=== PATIENT | female | born 1950 | race American Indian/Alaskan Native ===

== ENCOUNTER 2018-09-15 03:12 | Inpatient (IN) | payer MEDICARE ==
[2018-09-15] MEDS ORDERED: TYLENOL PR ONE (03:19)
[2018-09-15] MEDS ORDERED: NACL 0.9% 1000 ML 1,000 ML ONE (03:27)
[2018-09-15] MEDS ORDERED: CORDARONE 150 MG in D5W 97 ML IV ONE (03:45)
[2018-09-15 03:59] LABS: Hematocrit 41.8 % (30.3-42.9); Hemoglobin 13.6 gm/dl (10.1-14.3); Mean Corpuscular HGB Conc 33 % (30-34); Mean Corpuscular Volume 91 fl (79-97); Red Blood Count 4.61 M/mm3 (3.65-5.03); Red Cell Distribution Width 16.5 % (13.2-15.2)
[2018-09-15 04:03] LABS: Bacteria,Urine 1+ /HPF (Negative); Bilirubin,Urine NEG (Negative); Blood,Urine MOD (Negative); Mucus,Urine FEW /HPF; Urobilinogen,Urine < 2.0 mg/dL (<2.0)
--- NOTE | 2018-09-15 04:04 | XRay Report ---
CHEST 1 VIEW INDICATION: dyspnea. COMPARISON: None. FINDINGS: Support devices: None. Heart: Normal. Lungs/Pleura: Mild increased interstitial opacities may be due at least in part to low lung volumes. No consolidation, significant effusion, or pneumothorax. IMPRESSION: 1. Low lung volumes. No acute findings. Signer Name: Jose Quigley MD Signed: 09/15/2018 4:00 AM Workstation Name: [id number]
[2018-09-15 04:08] LABS: INR 1.85 (0.87-1.13)
[2018-09-15 04:09] LABS: Partial Thromboplastin Time 27.8 Sec. (24.2-36.6)
[2018-09-15 04:22] LABS: Alanine Aminotransferase 24 units/L (7-56); Albumin 2.9 g/dL (3.9-5); BUN/Creatinine Ratio 23; Blood Urea Nitrogen 37 mg/dL (7-17); Calcium 11.1 mg/dL (8.4-10.2); Hemolysis Index 4
[2018-09-15 04:24] LABS: Color,Urine Yellow (Yellow); WBC,Urine > 182.0 /HPF (0.0-6.0)
[2018-09-15 04:24] LABS: Platelet Count 82 K/mm3 (140-440)
[2018-09-15] MEDS ORDERED: NACL 0.9% 1000 ML 1,000 ML IV ONE ×3 (04:43→05:43)
[2018-09-15] MEDS ORDERED: MAXIPIME/NS 2 GM/100 ML 2 GM/100 ML BAG IV ONE (04:44)
--- NOTE | 2018-09-15 04:47 | Emergency Department Report ---
ED General Adult HPI - General Chief complaint: Fever Stated complaint: RESPIRATORY DISTRESS/SEPSIS Time Seen by Provider: 09/15/18 03:14 Source: EMS Mode of arrival: Stretcher Limitations: Altered Mental Status - History of Present Illness Initial comments: Patient is a 67-year-old [place] female who is [facility] with fever and altered mental status. Patient was found to be rapidly breathing and poorly responsive. Patient is a DO NOT RESUSCITATE. Patient has a history of diabetes hypertension and has had DVTs in the past patient is unable to give any additional history. Severity scale (0 -10): 0 - Related Data Allergies Allergy/AdvReac Type Severity Reaction Status Date / Time gabapentin Allergy Unknown Verified 09/15/18 03:23 Sulfa (Sulfonamide Allergy Unknown Verified 09/15/18 03:23 Antibiotics) ED Review of Systems ROS: Stated complaint: RESPIRATORY DISTRESS/SEPSIS Other details as noted in HPI Comment: Unobtainable due to pts medical conditions ED Past Medical Hx - Past Medical History Hx Hypertension: Yes Hx Diabetes: Yes Additional medical history: UTI, muscle weakness, abd pain, Acute embolism/thrombis of deep veins, obesity, dysphagia, - Social History Smoking Status: Unknown if ever smoked Substance Use Type: None ED Physical Exam - General Limitations: Altered Mental Status General appearance: lethargic, in distress - Head Head exam: Present: atraumatic, normocephalic - Eye Eye exam: Present: normal appearance, PERRL, EOMI - ENT ENT exam: Present: mucous membranes moist - Neck Neck exam: Present: normal inspection - Respiratory Respiratory exam: Present: normal lung sounds bilaterally. Absent: respiratory distress, wheezes, rales, rhonchi - Cardiovascular Cardiovascular Exam: Present: tachycardia. Absent: systolic murmur, diastolic m urmur, rubs, gallop - GI/Abdominal GI/Abdominal exam: Present: soft, normal bowel sounds. Absent: distended, guarding, rebound, rigid - Extremities Exam Extremities exam: Present: normal inspection - Back Exam Back exam: Present: normal inspection - Neurological Exam Neurological exam: Present: alert, altered - Skin Skin exam: Present: warm, dry, intact, normal color. Absent: rash ED Course Vital Signs 09/15/18 03:15 Temperature 104.3 F H Pulse Rate 161 H Respiratory 24 Rate Blood Pressure 129/78 O2 Sat by Pulse 96 Oximetry ED Medical Decision Making - Lab Data Result diagrams: 09/15/18 03:43 09/15/18 03:43 Lab Results 09/15/18 09/15/18 09/15/18 Range/Units 03:39 03:43 03:43 WBC 7.6 (4.5-11.0) K/mm3 RBC 4.61 (3.65-5.03) M/mm3 Hgb 13.6 (10.1-14.3) gm/dl Hct 41.8 (30.3-42.9) % MCV 91 (79-97) fl MCH 30 (28-32) pg MCHC 33 (30-34) % RDW 16.5 H (13.2-15.2) % Plt Count 82 L (140-440) K/mm3 Seg Neutrophils % Doctor Of Radiology PT (12.2-14.9) Sec. INR (0.87-1.13) APTT (24.2-36.6) Sec. Sodium 137 (137-145) mmol/L Potassium 3.6 (3.6-5.0) mmol/L Chloride 99.9 (98-107) mmol/L Carbon Dioxide 19 L (22-30) mmol/L Anion Gap 22 mmol/L BUN 37 H (7-17) mg/dL Creatinine 1.6 H (0.7-1.2) mg/dL Estimated GFR 39 ml/min BUN/Creatinine Ratio 23 % Glucose 362 H (65-100) mg/dL Lactic Acid (0.7-2.0) mmol/L Calcium 11.1 H (8.4-10.2) mg/dL Total Bilirubin 1.00 (0.1-1.2) mg/dL AST 25 (5-40) units/L ALT 24 (7-56) units/L Alkaline Phosphatase 176 H (35-129) units/L Troponin T < 0.010 (0.00-0.029) ng/mL Total Protein 7.6 (6.3-8.2) g/dL Albumin 2.9 L (3.9-5) g/dL Albumin/Globulin Ratio 0.6 % Urine Color Yellow (Yellow) Urine Turbidity Cloudy (Clear) Urine pH 6.0 (5.0-7.0) Ur Specific [place] 1.014 (1.003-1.030) Urine Protein 100 mg/dl (Negative) mg/dL Urine Glucose (UA) >=500 (Negative) mg/dL Urine Ketones Tr (Negative) mg/dL Urine Blood Mod (Negative) Urine Nitrite Neg (Negative) Urine Bilirubin Neg (Negative) Urine Urobilinogen < 2.0 (<2.0) mg/dL Ur Leukocyte Esterase Lg (Negative) Urine WBC (Auto) > 182.0 H (0.0-6.0) /HPF Urine RBC (Auto) 5.0 (0.0-6.0) /HPF Urine Bacteria (Auto) 1+ (Negative) /HPF Urine Mucus Few /HPF Urine Yeast (Budding) Few /HPF 09/15/18 09/15/18 Range/Units 03:43 03:43 WBC (4.5-11.0) K/mm3 RBC (3.65-5.03) M/mm3 Hgb (10.1-14.3) gm/dl Hct (30.3-42.9) % MCV (79-97) fl MCH (28-32) pg MCHC (30-34) % RDW (13.2-15.2) % Plt Count (140-440) K/mm3 Seg Neutrophils % PT 20.9 H (12.2-14.9) Sec. INR 1.85 H (0.87-1.13) APTT 27.8 (24.2-36.6) Sec. Sodium (137-145) mmol/L Potassium (3.6-5.0) mmol/L Chloride (98-107) mmol/L Carbon Dioxide (22-30) mmol/L Anion Gap mmol/L BUN (7-17) mg/dL Creatinine (0.7-1.2) mg/dL Estimated GFR ml/min BUN/Creatinine Ratio % Glucose (65-100) mg/dL Lactic Acid 2.60 H* (0.7-2.0) mmol/L Calcium (8.4-10.2) mg/dL Total Bilirubin (0.1-1.2) mg/dL AST (5-40) units/L ALT (7-56) units/L Alkaline Phosphatase (35-129) units/L Troponin T (0.00-0.029) ng/mL Total Protein (6.3-8.2) g/dL Albumin (3.9-5) g/dL Albumin/Globulin Ratio % Urine Color (Yellow) Urine Turbidity (Clear) Urine pH (5.0-7.0) Ur Specific [place] (1.003-1.030) Urine Protein (Negative) mg/dL Urine Glucose (UA) (Negative) mg/dL Urine Ketones (Negative) mg/dL Urine Blood (Negative) Urine Nitrite (Negative) Urine Bilirubin (Negative) Urine Urobilinogen (<2.0) mg/dL Ur Leukocyte Esterase (Negative) Urine WBC (Auto) (0.0-6.0) /HPF Urine RBC (Auto) (0.0-6.0) /HPF Urine Bacteria (Auto) (Negative) /HPF Urine Mucus /HPF Urine Yeast (Budding) /HPF - EKG Data -: EKG Interpreted by Al - EKG Data 09/15/18 04:52 EKG shows a wide complex regular ventricular tachycardia. Patient with a right bundle-branch block and left anterior fascicular block as well. [place] is leftward interval show a prolonged QT and widening QRS. Time of interpretation is 3:15 - Radiology Data Radiology results: report reviewed (chest x-ray shows low lung volumes but otherwise no acute process) - Medical Decision Making Patient is 67-year-old black female was coming from jail with fever and altered mental status. Patient has a stable V. tach as her blood pressures within normal limits. Patient's given rectal Tylenol for fever. Laboratory investigation shows a patient does have a significant urinary tract infection. Patient started on cefepime. Patient's heart rate did slow briefly with adenosine however it went back up to 160. Patient given 150 mg of amiodarone over 10 minutes. This decreased the heart rate to 1:30. Blood pressure did drop just slightly after this bolus. IV fluids have been initiated. Patient to be admitted to the hospitalist service. Again patient is a DO NOT RESUSCITATE. Critical Care Time: Yes (45) Critical care attestation.: If time is entered above; I have spent that time in minutes in the direct care of this critically ill patient, excluding procedure time. ED Disposition Clinical Impression: Wide-complex tachycardia Sepsis Qualifiers: Sepsis type: sepsis due to unspecified organism Qualified Code(s): A41.9 - Sepsis, unspecified organism Urinary tract infection Qualifiers: Urinary tract infection type: acute cystitis Hematuria presence: without hematuria Qualified Code(s): N30.00 - Acute cystitis without hematuria Disposition: DC-09 OP ADMIT IP TO THIS HOSP Is pt being admited?: Yes Does the pt Need Aspirin: No Condition: Stable Time of Disposition: 04:56
[2018-09-15] MEDS ORDERED: CORDARONE 900 MG in D5W 482 ML IV SCH (05:00)
[2018-09-15] MEDS ORDERED: SODIUM CHLORIDE FLUSH SYRINGE 10 ML IV PRN (05:41)
--- NOTE | 2018-09-15 05:51 | History and Physical Report ---
History of Present Illness Date of examination: 09/15/18 History of present illness: 67 -year-old with a history of hypertension, diabetes, DVT, dysphagia who is a DO NOT RESUSCITATE, do not hospitalize per paper work from [place], is being evaluated for fever, decreased responsiveness. In the emergency room she was in the V. tach with a rate of 160s, she was given adenosine twice without any effect, given amiodarone bolus which brought her rate down to 120s, however her blood pressure dropped. Her lab is significant for urinary tract infections, given IV antibiotics, fluids. Review of systems unobtainable PAST MEDICAL HISTORY:hypertension, diabetes, DVT, dysphagia PAST SURGICAL HISTORY: Unknown SOCIAL HISTORY: Unknown FAMILY HISTORY: Unknown Medications and Allergies Allergies Allergy/AdvReac Type Severity Reaction Status Date / Time gabapentin Allergy Unknown Verified 09/15/18 03:23 Sulfa (Sulfonamide Allergy Unknown Verified 09/15/18 03:23 Antibiotics) Home Medications Medication Instructions Recorded Confirmed Last Taken Type Amlodipine Besylate [Norvasc] 10 mg PO DAILY 09/15/18 09/15/18 09/14/18 History Atorvastatin Calcium [Lipitor] 20 mg PO QDAY 09/15/18 09/15/18 09/14/18 History Cholecalciferol Vit D3 [Vitamin D3 1,000 unit PO DAILY 09/15/18 09/15/18 09/14/18 History 1,000 UNIT TAB] HYDROcodone/APAP 5-325 [[place] 1 each PO Q4HR PRN 09/15/18 09/15/18 09/14/18 History 5/325] Hydralazine HCl 50 mg PO PRN 09/15/18 09/15/18 09/14/18 History Lactulose [Cephulac] 20 gm PO DAILY 09/15/18 09/15/18 09/14/18 History Linagliptin [Tradjenta] 5 mg PO QDAY 09/15/18 09/15/18 09/14/18 History Magnesium Hydroxide [Milk of 400 mg PO DAILY 09/15/18 09/15/18 09/14/18 History Magnesia] Pantoprazole Sodium [Protonix] 20 mg PO DAILY 09/15/18 09/15/18 09/14/18 History Rivaroxaban [Xarelto] 20 mg PO QDAY 09/15/18 09/15/18 09/14/18 History cloNIDine [Catapres] 0.2 mg PO PRN 09/15/18 09/15/18 09/14/18 History Active Meds: Active Medications Acetaminophen (Tylenol) 650 mg PO Q4H PRN PRN Reason: Pain MILD(1-3)/Fever >100.5/[place]AL[place] Enoxaparin Sodium (Lovenox) 30 mg SUB-Q QDAY REJI Amiodarone HCl 900 mg/ (Dextrose) 500 mls @ 33.333 mls/hr IV DIRECT REJI; Protocol Last Admin: 09/15/18 05:14 Dose: 1 mg/min, 33.333 mls/hr Documented by: Norepinephrine (Levophed Drip 4 Mg/Ns 250 Ml) 4 mg in 250 mls @ 7.5 mls/hr IV TITR REJI; Protocol Sodium Chloride (Nacl 0.9% 1000 Ml) 1,000 mls @ 999 mls/hr IV BOLUS ONE Stop: 09/15/18 06:11 Last Admin: 09/15/18 05:14 Dose: 999 mls/hr Documented by: Sodium Chloride (Nacl 0.9% 1000 Ml) 1,000 mls @ 125 mls/hr IV DIRECT REJI Sodium Chloride (Nacl 0.9% 1000 Ml) 1,000 mls @ 999 mls/hr IV ONCE ONE Stop: 09/15/18 06:43 Last Admin: 09/15/18 05:44 Dose: 999 mls/hr Documented by: Ondansetron HCl (Zofran) 4 mg IV Q8H PRN PRN Reason: Nausea And Vomiting Sodium Chloride (Sodium Chloride Flush Syringe 10 Ml) 10 ml IV BID REJI Sodium Chloride (Sodium Chloride Flush Syringe 10 Ml) 10 ml IV PRN PRN PRN Reason: LINE FLUSH Exam - Physical Exam Narrative exam: General Apperance: The patient lying in bed, breathing comfortable HEENT: Normocephalic, atraumatic. Pupils equally round and reactive to light, EOMI, no sclericterus or JVD or thyromegaly or nodule. , no carotid bruit, mucous membranes moist, no exudate or erythema Heart: S1-S2, regular is rhythm Lungs: Clear to auscultation bilaterally, breathing comfortable Abdomen: Positive bowel sounds, soft, nontender, nondistended, no organomegaly Extremities: No edema cyanosis clubbing Skin: no rash, nodule, warm and dry Neuro: Difficult to assess - Constitutional Vitals: Temp Pulse Resp BP Pulse Ox 101.4 F H 127 H 23 103/61 95 09/15/18 05:43 09/15/18 05:30 09/15/18 05:30 09/15/18 05:30 09/15/18 05:30 Results - Labs CBC & Chem 7: 09/16/18 04:17 09/16/18 04:17 Labs: Abnormal lab results 09/15/18 09/15/18 09/15/18 Range/Units 03:39 03:43 03:43 RDW 16.5 H (13.2-15.2) % Plt Count 82 L (140-440) K/mm3 PT (12.2-14.9) Sec. INR (0.87-1.13) Carbon Dioxide 19 L (22-30) mmol/L BUN 37 H (7-17) mg/dL Creatinine 1.6 H (0.7-1.2) mg/dL Glucose 362 H (65-100) mg/dL Lactic Acid (0.7-2.0) mmol/L Calcium 11.1 H (8.4-10.2) mg/dL Alkaline Phosphatase 176 H (35-129) units/L Albumin 2.9 L (3.9-5) g/dL Urine WBC (Auto) > 182.0 H (0.0-6.0) /HPF 09/15/18 09/15/18 Range/Units 03:43 03:43 RDW (13.2-15.2) % Plt Count (140-440) K/mm3 PT 20.9 H (12.2-14.9) Sec. INR 1.85 H (0.87-1.13) Carbon Dioxide (22-30) mmol/L BUN (7-17) mg/dL Creatinine (0.7-1.2) mg/dL Glucose (65-100) mg/dL Lactic Acid 2.60 H* (0.7-2.0) mmol/L Calcium (8.4-10.2) mg/dL Alkaline Phosphatase (35-129) units/L Albumin (3.9-5) g/dL Urine WBC (Auto) (0.0-6.0) /HPF - Imaging and Cardiology EKG: image reviewed Chest x-ray: report reviewed Assessment and Plan Assessment V. tach with RVR Sepsis Urinary tract infection Hypotension secondary to drugs Diabetes h/o DVT Plan Continue amiodarone drip Continue IV fluids, amio drip, start IV antibiotic, follow cultures Cardiac enzymes, echo, consult cardiology, critical care DVT prophylaxis with xarelto, hold antihypertensives Spoke with the niece, not aware of the patient was a DO NOT RESUSCITATE, do not hospitalize DO NOT RESUSCITATE papers sign June of this year She'll come in and clarify CODE STATUS
[2018-09-15] MEDS: LEVOPHED DRIP 4 MG/NS 250 ML 4 MG/250 ML BAG IV SCH (06:19)
[2018-09-15 06:33] LABS: Creatine Kinase MB 1.3 ng/mL (0.0-4.0)
[2018-09-15 08:21] LABS: Anisocytosis Few; Band Neutrophils # (Manual) 1.1 K/mm3; Basophils % (Manual) 0 % (0.0-1.8); Eosinophils % (Manual) 0 % (0.0-4.3); Giant Platelets Rare; Macrocytosis Few; Total Cells Counted 100
[2018-09-15 08:22] LABS: Platelet Estimate Consistent w Auto
[2018-09-15] MEDS: NACL 0.9% 1000 ML 1,000 ML IV SCH ×2 (08:29→17:58)
[2018-09-15] MEDS ORDERED: PANTOPRAZOLE SODIUM 20 MG PO SCH (10:00)
[2018-09-15] MEDS: VITAMIN D3 PO SCH (10:00)
[2018-09-15] MEDS ORDERED: LOVENOX SUB-Q SCH ×2 (10:00)
[2018-09-15] MEDS ORDERED: ATORVASTATIN CALCIUM 20 MG PO SCH (10:00)
[2018-09-15] MEDS: PROTONIX PO SCH (10:00)
[2018-09-15] MEDS ORDERED: XARELTO PO SCH (10:00)
--- NOTE | 2018-09-15 10:09 | Progress Note ---
Assessment and Plan Assessment and plan: Admit this morning Patient is a 67 yo woman from [facility] with a history of (per chart) UTI, DVT, DM type 2 and hypertension (patient is unable to give any additional history) who presented to [facility] ED with ANNA, fevers and AMS. Paperwork from [facility] says DNR and do not hospitalize under advance directives but no official paperwork sent with patient. In the emergency room she was found to be in V. tach with a rate of 160s, she was given adenosine twice without any effect, given amiodarone IV which decreased HR to 120s Sepsis UTI Acute encephalopathy Vtach/ Wide complex tachycardia: Continue amiodarone drip, consult Cardiology Hypotension secondary to drugs Diabetes mellitus type 2 h/o DVT on Xarelto Plan Continue IV fluids, amio drip, start IV antibiotic, follow cultures Cardiac enzymes, echo, consult cardiology, critical care DVT prophylaxis with xarelto, hold antihypertensives Dr. Sayra Moore Spoke with patient's niece, not aware of the patient was a DO NOT RESUSCITATE, do not hospitalize, DO NOT RESUSCITATE papers sign June of this year She'll come in and clarify CODE STATUS Code Status needs to be clarified This if patient first visit in our EMR prolonged inpatient services 34 minutes History Interval history: Patient was seen and examined. Follow-up on current diagnosis AMS and fevers. No overnight events reported to me. Imaging, nursing note, chart, labs and old chart reviewed. Gen: WDWN, NAD, Awake, Alert, Orientated HEENT: NCAT, EOMI, PERRL, OP Clear Neck: supple, no adenopathy, no thyromegaly, no JVD CVS/Heart: RRR, normal S1S2, pulses present bilaterally Chest/Lungs: CTA B, Symmetrical chest expansion, good air entry bilaterally GI/Abdomen: soft, NTND, good bowel sounds, no guarding or rebound /Bladder: no suprapubic tenderness, no CVA or paraspinal tenderness Extermity/Skin: no c/c/e, no obvious rash MSK: FROM x 4 Neuro: CN 2-12 grossly intact, no new focal deficits Psych: calm Hospitalist Physical - Constitutional Vitals: Temp Pulse Resp BP Pulse Ox 101.4 F H 101 H 14 105/66 99 09/15/18 05:43 09/15/18 09:30 09/15/18 09:30 09/15/18 09:30 09/15/18 09:30 Results - Labs CBC & Chem 7: 09/15/18 03:43 09/15/18 03:43 Labs: Laboratory Last Values WBC 7.6 K/mm3 (4.5-11.0) 09/15/18 03:43 RBC 4.61 M/mm3 (3.65-5.03) 09/15/18 03:43 Hgb 13.6 gm/dl (10.1-14.3) 09/15/18 03:43 Hct 41.8 % (30.3-42.9) 09/15/18 03:43 MCV 91 fl (79-97) 09/15/18 03:43 MCH 30 pg (28-32) 09/15/18 03:43 MCHC 33 % (30-34) 09/15/18 03:43 RDW 16.5 % (13.2-15.2) H 09/15/18 03:43 Plt Count 82 K/mm3 (140-440) L 09/15/18 03:43 Add Manual Diff Complete 09/15/18 03:43 Total Counted 100 09/15/18 03:43 Seg Neutrophils % Assistant To The Dean 09/15/18 03:43 Seg Neuts % (Manual) 83.0 % (40.0-70.0) H 09/15/18 03:43 15.0 % 09/15/18 03:43 1.0 % (13.4-35.0) L 09/15/18 03:43 Reactive Lymphs % (Man) 0 % 09/15/18 03:43 1.0 % (0.0-7.3) 09/15/18 03:43 0 % (0.0-4.3) 09/15/18 03:43 0 % (0.0-1.8) 09/15/18 03:43 0 % 09/15/18 03:43 0 % 09/15/18 03:43 0 % 09/15/18 03:43 0 % 09/15/18 03:43 Nucleated RBC % Not Reportable 09/15/18 03:43 Seg Neutrophils # Man 6.3 K/mm3 (1.8-7.7) 09/15/18 03:43 Band Neutrophils # 1.1 K/mm3 09/15/18 03:43 0.1 K/mm3 (1.2-5.4) L 09/15/18 03:43 Abs React Lymphs (Man) 0.0 K/mm3 09/15/18 03:43 0.1 K/mm3 (0.0-0.8) 09/15/18 03:43 0.0 K/mm3 (0.0-0.4) 09/15/18 03:43 0.0 K/mm3 (0.0-0.1) 09/15/18 03:43 0.0 K/mm3 09/15/18 03:43 0.0 K/mm3 09/15/18 03:43 0.0 K/mm3 09/15/18 03:43 Blast Cells # 0.0 K/mm3 09/15/18 03:43 WBC Morphology Not Reportable 09/15/18 03:43 Hypersegmented Neuts Not Reportable 09/15/18 03:43 Hyposegmented Neuts Not Reportable 09/15/18 03:43 Hypogranular Neuts Not Reportable 09/15/18 03:43 Not Reportable 09/15/18 03:43 Not Reportable 09/15/18 03:43 Not Reportable 09/15/18 03:43 Not Reportable 09/15/18 03:43 Not Reportable 09/15/18 03:43 Not Reportable 09/15/18 03:43 Consistent w auto 09/15/18 03:43 Not Reportable 09/15/18 03:43 Plt Clumps, EDTA Not Reportable 09/15/18 03:43 Not Reportable 09/15/18 03:43 Rare 09/15/18 03:43 Not Reportable 09/15/18 03:43 Plt Morphology Comment Not Reportable 09/15/18 03:43 RBC Morphology Not Reportable 09/15/18 03:43 Dimorphic RBCs Not Reportable 09/15/18 03:43 Not Reportable 09/15/18 03:43 Not Reportable 09/15/18 03:43 Not Reportable 09/15/18 03:43 Few 09/15/18 03:43 Not Reportable 09/15/18 03:43 Few 09/15/18 03:43 Not Reportable 09/15/18 03:43 Not Reportable 09/15/18 03:43 Not Reportable 09/15/18 03:43 Not Reportable 09/15/18 03:43 Not Reportable 09/15/18 03:43 Not Reportable 09/15/18 03:43 Not Reportable 09/15/18 03:43 Not Reportable 09/15/18 03:43 Not Reportable 09/15/18 03:43 Not Reportable 09/15/18 03:43 Not Reportable 09/15/18 03:43 Not Reportable 09/15/18 03:43 Not Reportable 09/15/18 03:43 Acanthocytes (Spur) Not Reportable 09/15/18 03:43 Rouleaux Not Reportable 09/15/18 03:43 Not Reportable 09/15/18 03:43 Not Reportable 09/15/18 03:43 Not Reportable 09/15/18 03:43 Not Reportable 09/15/18 03:43 Hem Pathologist Commnt No 09/15/18 03:43 PT 20.9 Sec. (12.2-14.9) H 09/15/18 03:43 INR 1.85 (0.87-1.13) H 09/15/18 03:43 APTT 27.8 Sec. (24.2-36.6) 09/15/18 03:43 Sodium 137 mmol/L (137-145) 09/15/18 03:43 Potassium 3.6 mmol/L (3.6-5.0) 09/15/18 03:43 Chloride 99.9 mmol/L (98-107) 09/15/18 03:43 Carbon Dioxide 19 mmol/L (22-30) L 09/15/18 03:43 22 mmol/L 09/15/18 03:43 BUN 37 mg/dL (7-17) H 09/15/18 03:43 1.6 mg/dL (0.7-1.2) H 09/15/18 03:43 Estimated GFR 39 ml/min 09/15/18 03:43 23 % 09/15/18 03:43 Glucose 362 mg/dL (65-100) H 09/15/18 03:43 Lactic Acid 1.80 mmol/L (0.7-2.0) 09/15/18 07:02 Calcium 11.1 mg/dL (8.4-10.2) H 09/15/18 03:43 1.00 mg/dL (0.1-1.2) 09/15/18 03:43 AST 25 units/L (5-40) 09/15/18 03:43 ALT 24 units/L (7-56) 09/15/18 03:43 176 units/L (35-129) H 09/15/18 03:43 53 units/L (30-135) 09/15/18 06:01 CK-MB (CK-2) 1.3 ng/mL (0.0-4.0) 09/15/18 06:01 CK-MB (CK-2) Rel Index 2.4 (0-4) 09/15/18 06:01 0.010 ng/mL (0.00-0.029) 09/15/18 06:01 7.6 g/dL (6.3-8.2) 09/15/18 03:43 2.9 g/dL (3.9-5) L 09/15/18 03:43 0.6 % 09/15/18 03:43 Yellow (Yellow) 09/15/18 03:39 Cloudy (Clear) 09/15/18 03:39 6.0 (5.0-7.0) 09/15/18 03:39 Ur Specific [place] 1.014 (1.003-1.030) 09/15/18 03:39 100 mg/dl mg/dL (Negative) 09/15/18 03:39 >=500 mg/dL (Negative) 09/15/18 03:39 Tr mg/dL (Negative) 09/15/18 03:39 Mod (Negative) 09/15/18 03:39 Neg (Negative) 09/15/18 03:39 Neg (Negative) 09/15/18 03:39 < 2.0 mg/dL (<2.0) 09/15/18 03:39 Ur Leukocyte Esterase Lg (Negative) 09/15/18 03:39 > 182.0 /HPF (0.0-6.0) H 09/15/18 03:39 5.0 /HPF (0.0-6.0) 09/15/18 03:39 1+ /HPF (Negative) 09/15/18 03:39 Few /HPF 09/15/18 03:39 Few /HPF 09/15/18 03:39 Active Medications - Current Medications Current Medications: Generic Name Dose Route Start Last Admin Trade Name Freq PRN Reason Stop Dose Admin Acetaminophen 650 mg 09/15/18 05:41 Tylenol PO Q4H PRN Pain MILD(1-3)/Fever >100.5/[place] Acetaminophen 650 mg 09/15/18 08:49 Tylenol [place] Q4H PRN Pain, Mild (1-3) Atorvastatin Calcium 20 mg 09/15/18 22:00 Lipitor PO QHS [facility] Cholecalciferol 1,000 unit 09/15/18 10:00 Vitamin D3 PO DAILY [facility] Amiodarone HCl 900 mg/ 500 mls @ 33.333 mls/hr 09/15/18 05:00 09/15/18 05:14 Dextrose IV 1 mg/min DIRECT REJI 33.333 mls/hr Administration Protocol 1 MG/MIN Norepinephrine 4 mg in 250 mls @ 7.5 mls/hr 09/15/18 06:00 09/15/18 08:07 Levophed Drip 4 Mg/Ns 250 Ml IV 6 mcg/min TITR REJI 22.5 mls/hr Titration Protocol 2 MCG/MIN Sodium Chloride 1,000 mls @ 125 mls/hr 09/15/18 06:00 09/15/18 08:29 Nacl 0.9% 1000 Ml IV 125 mls/hr DIRECT REJI Administration Piperacillin Sod/Tazobactam Sod 3.375 gm in 50 mls @ 100 mls/hr 09/15/18 14:00 Zosyn/Ns 3.375gm/50ml IV Q8HR [facility] Ondansetron HCl 4 mg 09/15/18 05:41 Zofran IV Q8H PRN Nausea And Vomiting Pantoprazole Sodium 20 mg 09/15/18 10:00 Protonix PO QDAY [facility] Rivaroxaban 20 mg 09/15/18 10:00 Xarelto PO QPM [facility] Protocol Sodium Chloride 10 ml 09/15/18 10:00 Sodium Chloride Flush Syringe 10 Ml IV BID REJI Sodium Chloride 10 ml 09/15/18 05:41 Sodium Chloride Flush Syringe 10 Ml IV PRN PRN LINE FLUSH
--- NOTE | 2018-09-15 11:21 | Consultation ---
History of Present Illness Reason for consult: dyspnea History of present illness: patient with hx of afib from [place] who comes in with sob and AMS. Pt is in ICU on amiodarone drip Medications and Allergies Allergies Allergy/AdvReac Type Severity Reaction Status Date / Time gabapentin Allergy Unknown Verified 09/15/18 03:23 Sulfa (Sulfonamide Allergy Unknown Verified 09/15/18 03:23 Antibiotics) Home Medications Medication Instructions Recorded Confirmed Last Taken Type Amlodipine Besylate [Norvasc] 10 mg PO DAILY 09/15/18 09/15/18 09/14/18 History Atorvastatin Calcium [Lipitor] 20 mg PO QDAY 09/15/18 09/15/18 09/14/18 History Cholecalciferol Vit D3 [Vitamin D3 1,000 unit PO DAILY 09/15/18 09/15/18 09/14/18 History 1,000 UNIT TAB] HYDROcodone/APAP 5-325 [[place] 1 each PO Q4HR PRN 09/15/18 09/15/18 09/14/18 History 5/325] Hydralazine HCl 50 mg PO PRN 09/15/18 09/15/18 09/14/18 History Lactulose [Cephulac] 20 gm PO DAILY 09/15/18 09/15/18 09/14/18 History Linagliptin [Tradjenta] 5 mg PO QDAY 09/15/18 09/15/18 09/14/18 History Magnesium Hydroxide [Milk of 400 mg PO DAILY 09/15/18 09/15/18 09/14/18 History Magnesia] Pantoprazole Sodium [Protonix] 20 mg PO DAILY 09/15/18 09/15/18 09/14/18 History Rivaroxaban [Xarelto] 20 mg PO QDAY 09/15/18 09/15/18 09/14/18 History cloNIDine [Catapres] 0.2 mg PO PRN 09/15/18 09/15/18 09/14/18 History Active Meds: Active Medications Acetaminophen (Tylenol) 650 mg PO Q4H PRN PRN Reason: Pain MILD(1-3)/Fever >100.5/WHALEN Acetaminophen (Tylenol) 650 mg IN Q4H PRN PRN Reason: Pain, Mild (1-3) Atorvastatin Calcium (Lipitor) 20 mg PO QHS REJI Cholecalciferol (Vitamin D3) 1,000 unit PO DAILY REJI Amiodarone HCl 900 mg/ (Dextrose) 500 mls @ 33.333 mls/hr IV DIRECT REJI; Protocol Last Admin: 09/15/18 05:14 Dose: 1 mg/min, 33.333 mls/hr Documented by: Norepinephrine (Levophed Drip 4 Mg/Ns 250 Ml) 4 mg in 250 mls @ 7.5 mls/hr IV TITR REJI; Protocol Last Titration: 09/15/18 08:07 Dose: 6 mcg/min, 22.5 mls/hr Documented by: Sodium Chloride (Nacl 0.9% 1000 Ml) 1,000 mls @ 125 mls/hr IV DIRECT REJI Last Admin: 09/15/18 08:29 Dose: 125 mls/hr Documented by: Piperacillin Sod/Tazobactam Sod (Zosyn/Ns 3.375gm/50ml) 3.375 gm in 50 mls @ 100 mls/hr IV Q8HR REJI Ondansetron HCl (Zofran) 4 mg IV Q8H PRN PRN Reason: Nausea And Vomiting Pantoprazole Sodium (Protonix) 20 mg PO QDAY REJI Rivaroxaban (Xarelto) 20 mg PO QPM REJI; Protocol Sodium Chloride (Sodium Chloride Flush Syringe 10 Ml) 10 ml IV BID REJI Sodium Chloride (Sodium Chloride Flush Syringe 10 Ml) 10 ml IV PRN PRN PRN Reason: LINE FLUSH Physical Examination Vital signs: Vital Signs Pulse Resp Pulse Ox 161 H 20 95 09/15/18 03:10 09/15/18 03:10 09/15/18 03:10 Results - Laboratory Findings CBC and BMP: 09/15/18 03:43 09/15/18 03:43 PT/INR, D-dimer PT 20.9 Sec. (12.2-14.9) H 09/15/18 03:43 INR 1.85 (0.87-1.13) H 09/15/18 03:43 Abnormal lab findings: Abnormal Labs 09/15/18 09/15/18 09/15/18 03:39 03:43 03:43 RDW 16.5 H Plt Count 82 L Seg Neuts % (Manual) 83.0 H Lymphocytes % (Manual) 1.0 L Lymphocytes # (Manual) 0.1 L PT INR Carbon Dioxide 19 L BUN 37 H Creatinine 1.6 H Glucose 362 H Lactic Acid Calcium 11.1 H Alkaline Phosphatase 176 H Albumin 2.9 L Urine WBC (Auto) > 182.0 H 09/15/18 09/15/18 09/15/18 03:43 03:43 06:01 RDW Plt Count Seg Neuts % (Manual) Lymphocytes % (Manual) Lymphocytes # (Manual) PT 20.9 H INR 1.85 H Carbon Dioxide BUN Creatinine Glucose Lactic Acid 2.60 H* 2.30 H* Calcium Alkaline Phosphatase Albumin Urine WBC (Auto) - Diagnostic Findings Chest x-ray: report reviewed, image reviewed Assessment and Plan - Patient Problems (1) Dementia Current Visit: Yes Status: Acute (2) Physical deconditioning Current Visit: Yes Status: Acute (3) Sepsis Current Visit: Yes Status: Acute Qualifiers: Sepsis type: sepsis due to unspecified organism Qualified Code(s): A41.9 - Sepsis, unspecified organism (4) Urinary tract infection Current Visit: Yes Status: Acute Qualifiers: Urinary tract infection type: acute cystitis Hematuria presence: without hematuria Qualified Code(s): N30.00 - Acute cystitis without hematuria (5) Wide-complex tachycardia Current Visit: Yes Status: Acute
--- NOTE | 2018-09-15 11:22 | Consultation ---
History of Present Illness Consult date: 09/15/18 History of present illness: 67 year old of recurrent [place] female presenting from the alf with an altered mental status. She was found to have a wide QRS tachycardia on her 12-lead EKG for which she was treated patient is non-verbal or communicative history obtained from the chart Past History Past Medical History: diabetes, hypertension Past Surgical History: No surgical history Medications and Allergies Allergies Allergy/AdvReac Type Severity Reaction Status Date / Time gabapentin Allergy Unknown Verified 09/15/18 03:23 Sulfa (Sulfonamide Allergy Unknown Verified 09/15/18 03:23 Antibiotics) Home Medications Medication Instructions Recorded Confirmed Last Taken Type Amlodipine Besylate [Norvasc] 10 mg PO DAILY 09/15/18 09/15/18 09/14/18 History Atorvastatin Calcium [Lipitor] 20 mg PO QDAY 09/15/18 09/15/18 09/14/18 History Cholecalciferol Vit D3 [Vitamin D3 1,000 unit PO DAILY 09/15/18 09/15/18 09/14/18 History 1,000 UNIT TAB] HYDROcodone/APAP 5-325 [[place] 1 each PO Q4HR PRN 09/15/18 09/15/18 09/14/18 History 5/325] Hydralazine HCl 50 mg PO PRN 09/15/18 09/15/18 09/14/18 History Lactulose [Cephulac] 20 gm PO DAILY 09/15/18 09/15/18 09/14/18 History Linagliptin [Tradjenta] 5 mg PO QDAY 09/15/18 09/15/18 09/14/18 History Magnesium Hydroxide [Milk of 400 mg PO DAILY 09/15/18 09/15/18 09/14/18 History Magnesia] Pantoprazole Sodium [Protonix] 20 mg PO DAILY 09/15/18 09/15/18 09/14/18 History Rivaroxaban [Xarelto] 20 mg PO QDAY 09/15/18 09/15/18 09/14/18 History cloNIDine [Catapres] 0.2 mg PO PRN 09/15/18 09/15/18 09/14/18 History Active Meds: Active Medications Acetaminophen (Tylenol) 650 mg PO Q4H PRN PRN Reason: Pain MILD(1-3)/Fever >100.5/[place] Acetaminophen (Tylenol) 650 mg [place] Q4H PRN PRN Reason: Pain, Mild (1-3) Atorvastatin Calcium (Lipitor) 20 mg PO QHS REJI Cholecalciferol (Vitamin D3) 1,000 unit PO DAILY REJI Amiodarone HCl 900 mg/ (Dextrose) 500 mls @ 33.333 mls/hr IV DIRECT REJI; Protocol Last Admin: 09/15/18 05:14 Dose: 1 mg/min, 33.333 mls/hr Documented by: Norepinephrine (Levophed Drip 4 Mg/Ns 250 Ml) 4 mg in 250 mls @ 7.5 mls/hr IV TITR REJI; Protocol Last Titration: 09/15/18 08:07 Dose: 6 mcg/min, 22.5 mls/hr Documented by: Sodium Chloride (Nacl 0.9% 1000 Ml) 1,000 mls @ 125 mls/hr IV DIRECT REJI Last Admin: 09/15/18 08:29 Dose: 125 mls/hr Documented by: Piperacillin Sod/Tazobactam Sod (Zosyn/Ns 3.375gm/50ml) 3.375 gm in 50 mls @ 10 0 mls/hr IV Q8HR REJI Ondansetron HCl (Zofran) 4 mg IV Q8H PRN PRN Reason: Nausea And Vomiting Pantoprazole Sodium (Protonix) 20 mg PO QDAY REJI Rivaroxaban (Xarelto) 20 mg PO QPM [facility]; Protocol Sodium Chloride (Sodium Chloride Flush Syringe 10 Ml) 10 ml IV BID REJI Sodium Chloride (Sodium Chloride Flush Syringe 10 Ml) 10 ml IV PRN PRN PRN Reason: LINE FLUSH Review of Systems ROS unobtainable: due to mental status Physical Examination Vital Signs Pulse Resp Pulse Ox 161 H 20 95 09/15/18 03:10 09/15/18 03:10 09/15/18 03:10 General appearance: no acute distress, obese HEENT: Positive: PERRL. Negative: Mucus Membranes Moist Neck: Positive: neck supple. Negative: JVD/HJR Cardiac: Positive: Regular Rate, S1/S2, PMI, Dilated, Laterally Displaced Lungs: Positive: clear to auscultation, No Wheeze, Rales, Rhonchi Abdomen: Positive: Unremarkable. Negative: Active Bowel Sounds Extremities: Absent: edema Results 09/15/18 03:43 09/15/18 03:43 Cardiac Enzymes 09/15/18 09/15/18 Range/Units 03:43 06:01 AST 25 (5-40) units/L CK-MB (CK-2) 1.3 (0.0-4.0) ng/mL Coagulation 09/15/18 Range/Units 03:43 PT 20.9 H (12.2-14.9) Sec. INR 1.85 H (0.87-1.13) APTT 27.8 (24.2-36.6) Sec. CBC 09/15/18 Range/Units 03:43 WBC 7.6 (4.5-11.0) K/mm3 RBC 4.61 (3.65-5.03) M/mm3 Hgb 13.6 (10.1-14.3) gm/dl Hct 41.8 (30.3-42.9) % Plt Count 82 L (140-440) K/mm3 Comprehensive Metabolic Panel 09/15/18 Range/Units 03:43 Sodium 137 (137-145) mmol/L Potassium 3.6 (3.6-5.0) mmol/L Chloride 99.9 (98-107) mmol/L Carbon Dioxide 19 L (22-30) mmol/L BUN 37 H (7-17) mg/dL Creatinine 1.6 H (0.7-1.2) mg/dL Glucose 362 H (65-100) mg/dL Calcium 11.1 H (8.4-10.2) mg/dL AST 25 (5-40) units/L ALT 24 (7-56) units/L Alkaline Phosphatase 176 H (35-129) units/L Total Protein 7.6 (6.3-8.2) g/dL Albumin 2.9 L (3.9-5) g/dL Assessment and Plan 1. Wide QRS tachycardia currently in a sinus rhythm on IV amiodarone 2. Essential hypertension 3. Type 2 diabetes mellitus 4. Altered mental status 5. Dementia Plan Obtain an echocardiogram to assess global original function discontinue all IV pressors as indicated. Patient not a candidate for invasive cardiac management.
[2018-09-15 12:11] LABS: Creatine Kinase MB 1.8 ng/mL (0.0-4.0)
[2018-09-15] MEDS: TYLENOL PR PRN (14:34)
[2018-09-15] MEDS: ZOSYN/NS 3.375GM/50ML 3.375 GM/50 ML BAG IV SCH ×2 (14:50→23:21)
[2018-09-15] MEDS: XARELTO PO SCH (17:56)
[2018-09-15] MEDS: SODIUM CHLORIDE FLUSH SYRINGE 10 ML IV SCH (18:58)
[2018-09-15] MEDS: TYLENOL PO PRN (23:20)
[2018-09-16] MEDS: LEVOPHED DRIP 4 MG/NS 250 ML 4 MG/250 ML BAG IV SCH (00:50)
[2018-09-16] MEDS: NACL 0.9% 1000 ML 1,000 ML IV SCH ×3 (00:50→18:27)
[2018-09-16 04:50] LABS: Hematocrit 37.6 % (30.3-42.9); Hemoglobin 12.4 gm/dl (10.1-14.3); Mean Corpuscular HGB Conc 33 % (30-34); Mean Corpuscular Volume 90 fl (79-97); Red Blood Count 4.19 M/mm3 (3.65-5.03); Red Cell Distribution Width 16.5 % (13.2-15.2)
[2018-09-16 04:55] LABS: Platelet Count 65 K/mm3 (140-440)
[2018-09-16 05:07] LABS: Calcium 10.3 mg/dL (8.4-10.2)
[2018-09-16 07:13] LABS: Band Neutrophils # (Manual) 1.9 K/mm3; Basophils % (Manual) 0 % (0.0-1.8); Eosinophils % (Manual) 0 % (0.0-4.3); Myelocytes # (Manual) 0.1 K/mm3; Platelet Estimate Consistent w Auto; RBC Morphology Normal; Total Cells Counted 100
[2018-09-16] MEDS: SODIUM CHLORIDE FLUSH SYRINGE 10 ML IV SCH ×3 (07:29→22:00)
[2018-09-16] MEDS: ZOSYN/NS 3.375GM/50ML 3.375 GM/50 ML BAG IV SCH ×3 (07:36→21:39)
--- NOTE | 2018-09-16 08:16 | Progress Note ---
Assessment and Plan - Patient Problems (1) Dementia Current Visit: Yes Status: Acute (2) Physical deconditioning Current Visit: Yes Status: Acute (3) Sepsis Current Visit: Yes Status: Acute Qualifiers: Sepsis type: sepsis due to unspecified organism Qualified Code(s): A41.9 - Sepsis, unspecified organism (4) Urinary tract infection Current Visit: Yes Status: Acute Qualifiers: Urinary tract infection type: acute cystitis Hematuria presence: without hematuria Qualified Code(s): N30.00 - Acute cystitis without hematuria (5) Wide-complex tachycardia Current Visit: Yes Status: Acute (6) Renal insufficiency Current Visit: Yes Status: Acute Subjective Interval history: Awake Answer questions appropriately Objective Vital Signs - 12hr 09/15/18 09/15/18 09/16/18 22:32 23:35 00:00 Temperature 100.6 F H Pulse Rate 109 H Pulse Rate [ 129 H From Monitor] O2 Sat by Pulse 97 Oximetry 09/16/18 09/16/18 09/16/18 02:00 03:28 04:00 Temperature 99.4 F Pulse Rate 124 H Pulse Rate [ 134 H From Monitor] O2 Sat by Pulse 97 Oximetry 09/16/18 06:00 Temperature Pulse Rate Pulse Rate [ 124 H From Monitor] O2 Sat by Pulse 96 Oximetry Constitutional: no acute distress Eyes: non-icteric ENT: oropharynx dry Neck: supple Effort: normal Ascultation: Bilateral: clear Cardiovascular: regular rate and rhythm Gastrointestinal: normoactive bowel sounds, non-distended Integumentary: normal Extremities: no cyanosis CBC and BMP: 09/16/18 04:17 09/16/18 04:17 ABG, PT/INR, D-dimer: PT/INR, D-dimer PT 20.9 Sec. (12.2-14.9) H 09/15/18 03:43 INR 1.85 (0.87-1.13) H 09/15/18 03:43 Abnormal lab findings: Abnormal Labs 09/15/18 09/15/18 09/15/18 03:39 03:43 03:43 WBC RDW 16.5 H Plt Count 82 L Seg Neuts % (Manual) 83.0 H Lymphocytes % (Manual) 1.0 L Seg Neutrophils # Man Lymphocytes # (Manual) 0.1 L PT INR Potassium Chloride Carbon Dioxide 19 L BUN 37 H Creatinine 1.6 H Glucose 362 H POC Glucose Lactic Acid Calcium 11.1 H Alkaline Phosphatase 176 H Albumin 2.9 L Urine WBC (Auto) > 182.0 H 09/15/18 09/15/18 09/15/18 03:43 03:43 06:01 WBC RDW Plt Count Seg Neuts % (Manual) Lymphocytes % (Manual) Seg Neutrophils # Man Lymphocytes # (Manual) PT 20.9 H INR 1.85 H Potassium Chloride Carbon Dioxide BUN Creatinine Glucose POC Glucose Lactic Acid 2.60 H* 2.30 H* Calcium Alkaline Phosphatase Albumin Urine WBC (Auto) 09/16/18 09/16/18 09/16/18 00:40 04:17 04:17 WBC 11.6 H RDW 16.5 H Plt Count 65 L Seg Neuts % (Manual) 78.0 H Lymphocytes % (Manual) 1.0 L Seg Neutrophils # Man 9.0 H Lymphocytes # (Manual) 0.1 L PT INR Potassium 3.3 L Chloride 109.7 H Carbon Dioxide 16 L BUN 31 H Creatinine 1.3 H Glucose 370 H POC Glucose 368 H Lactic Acid Calcium 10.3 H Alkaline Phosphatase Albumin Urine WBC (Auto) 09/16/18 05:28 WBC RDW Plt Count Seg Neuts % (Manual) Lymphocytes % (Manual) Seg Neutrophils # Man Lymphocytes # (Manual) PT INR Potassium Chloride Carbon Dioxide BUN Creatinine Glucose POC Glucose 373 H Lactic Acid Calcium Alkaline Phosphatase Albumin Urine WBC (Auto) Chest x-ray: report reviewed, image reviewed
[2018-09-16] MEDS: VITAMIN D3 PO SCH (09:39)
[2018-09-16] MEDS: PROTONIX PO SCH (09:39)
[2018-09-16] MEDS: KCL 10MEQ/100ML 10 MEQ/100 ML BAG IV SCH ×4 (10:30→14:17)
--- NOTE | 2018-09-16 10:43 | Progress Note ---
Assessment and Plan 1. Wide QRS tachycardia resolved 2. Sepsis/septic shock 3. Type 2 diabetes mellitus 4. History of essential hypertension 5. Dementia Plan Stop Amiodarone. Wean off IV pressor agents,, continue IV antibiotics. Check echocardiogram. Patient not a candidate for invasive cardiac management. Subjective Date of service: 09/16/18 Interval history: Patient is alert demented noncommunicative Objective Vital Signs Temp Pulse Pulse Resp BP Pulse Ox 09/16/18 09:40 99 09/16/18 08:15 98.7 F 09/16/18 06:00 124 H 96 09/16/18 04:00 124 H 09/16/18 03:28 99.4 F 09/16/18 02:00 134 H 97 09/16/18 00:00 109 H 09/15/18 23:35 100.6 F H 09/15/18 22:32 129 H 97 09/15/18 20:00 100.5 F H 133 H 09/15/18 19:32 98 09/15/18 16:00 102.3 F H 09/15/18 12:00 100 F H 09/15/18 11:30 108 H 09/15/18 11:15 97 H 15 102/60 100 09/15/18 11:03 97 H 18 100 - Physical Examination General: No Apparent Distress HEENT: Positive: PERRL. Negative: Mucus Membranes Moist Neck: Positive: neck supple. Negative: JVD/HJR Cardiac: Positive: Regular Rate, S1/S2, PMI, Laterally Displaced Lungs: Positive: clear to auscultation, No Wheeze, Rales, Rhonchi Abdomen: Positive: Unremarkable. Negative: Active Bowel Sounds Extremities: Absent: edema - Labs and Meds Cardiac Enzymes 09/15/18 Range/Units 11:29 CK-MB (CK-2) 1.8 (0.0-4.0) ng/mL CBC 09/16/18 Range/Units 04:17 WBC 11.6 H (4.5-11.0) K/mm3 RBC 4.19 (3.65-5.03) M/mm3 Hgb 12.4 (10.1-14.3) gm/dl Hct 37.6 (30.3-42.9) % Plt Count 65 L (140-440) K/mm3 Comprehensive Metabolic Panel 09/16/18 Range/Units 04:17 Sodium 144 D (137-145) mmol/L Potassium 3.3 L (3.6-5.0) mmol/L Chloride 109.7 H (98-107) mmol/L Carbon Dioxide 16 L (22-30) mmol/L BUN 31 H (7-17) mg/dL Creatinine 1.3 H (0.7-1.2) mg/dL Glucose 370 H (65-100) mg/dL Calcium 10.3 H (8.4-10.2) mg/dL - Imaging and Cardiology EKG: image reviewed
[2018-09-16] MEDS ORDERED: D50W (25GM) Syringe IV PRN (14:08)
[2018-09-16] MEDS ORDERED: DULCOLAX PR ONE (14:09)
--- NOTE | 2018-09-16 14:21 | Progress Note ---
Assessment and Plan Assessment and plan: Patient is a 67 yo woman from [facility] (this if patient first visit in our EMR) with a history of (per chart) UTI, DVT, DM type 2 and hypertension (patient is unable to give any additional history) who presented to [facility] ED with ANNA, fevers and AMS. Advance directives paperwork from [facility] shows that patient is DNR and No Hospitalizations but patient changed her mind and wanted to be hospitalize but she does not want to be resuscitated. In the emergency room, she was found to be in V. tach with a rate of 160s, she was given adenosine twice without resolution then given amiodarone IV which decreased HR to 120s. She was admitted to ICU on IV amidorone drip alone with Levophed vasopressor via right chin right Interosseous (IO) IV. Sepsis UTI with suspected shock, poa on Levophed: consulted ID, ordered Urine culture (I do not know why it wasn't send on admission), remove acosta, place Purewack, wean down 2 mcg Levophed Acute encephalopathy, resolved Vtach/ Wide complex tachycardia: wean off amiodarone drip, consult Cardiology, input noted, ECHO done await reading. Hypotension secondary to drugs Diabetes mellitus type 2: added SSI h/o DVT: on Xarelto Functional quadriplegia, she denies a stroke: order PT/OT DNR, verified with patient remove acosta remove IO order PICC line wean off Levophed, give more NSS IVF bolus Consulted ID ordered urine culture CCT 34 minutes History Interval history: Patient was seen and examined. Follow-up on current diagnosis AMS and fevers. No overnight events reported to me. Imaging, nursing note, chart, labs and old chart reviewed. Patient is a/o x 3, she tells me that she changed her mind regarding coming to the hospital but she still doesn't want to be resuscitated, Nurse Negra as witness. Hospitalist Physical - Physical exam Narrative exam: Gen: chronic disable, ill appearing, NAD, Awake, Alert, Orientated x 3 HEENT: NCAT, EOMI, PERRL, OP Clear Neck: supple, no adenopathy, no thyromegaly, no JVD CVS/Heart: Regular tachycardia, normal S1S2, pulses present bilaterally Chest/Lungs: CTA B, Symmetrical chest expansion, good air entry bilaterally GI/Abdomen: soft, NTND, good bowel sounds, no guarding or rebound /Bladder: no suprapubic tenderness, no CVA or paraspinal tenderness, Extermity/Skin: atrophic bilateral legs with muscle wasting, no c/c/e, no obvious rash MSK: FROM x 3, right hemiparesis not Neuro: CN 2-12 grossly intact, no new focal deficits, Psych: calm - Constitutional Vitals: Temp Pulse Resp BP Pulse Ox 98.7 F 106 H 25 H 114/70 98 09/16/18 12:00 09/16/18 13:41 09/16/18 13:41 09/16/18 13:41 09/16/18 13:41 General appearance: Present: no acute distress, obese Results - Labs CBC & Chem 7: 09/16/18 04:17 09/16/18 04:17 Labs: Laboratory Last Values WBC 11.6 K/mm3 (4.5-11.0) H 09/16/18 04:17 RBC 4.19 M/mm3 (3.65-5.03) 09/16/18 04:17 Hgb 12.4 gm/dl (10.1-14.3) 09/16/18 04:17 Hct 37.6 % (30.3-42.9) 09/16/18 04:17 MCV 90 fl (79-97) 09/16/18 04:17 MCH 30 pg (28-32) 09/16/18 04:17 MCHC 33 % (30-34) 09/16/18 04:17 RDW 16.5 % (13.2-15.2) H 09/16/18 04:17 Plt Count 65 K/mm3 (140-440) L 09/16/18 04:17 Add Manual Diff Complete 09/16/18 04:17 Total Counted 100 09/16/18 04:17 Seg Neutrophils % Bus Monitor 09/16/18 04:17 Seg Neuts % (Manual) 78.0 % (40.0-70.0) H 09/16/18 04:17 16.0 % 09/16/18 04:17 1.0 % (13.4-35.0) L 09/16/18 04:17 Reactive Lymphs % (Man) 0 % 09/16/18 04:17 4.0 % (0.0-7.3) 09/16/18 04:17 0 % (0.0-4.3) 09/16/18 04:17 0 % (0.0-1.8) 09/16/18 04:17 0 % 09/16/18 04:17 1.0 % 09/16/18 04:17 0 % 09/16/18 04:17 0 % 09/16/18 04:17 Nucleated RBC % Not Reportable 09/16/18 04:17 Seg Neutrophils # Man 9.0 K/mm3 (1.8-7.7) H 09/16/18 04:17 Band Neutrophils # 1.9 K/mm3 09/16/18 04:17 0.1 K/mm3 (1.2-5.4) L 09/16/18 04:17 Abs React Lymphs (Man) 0.0 K/mm3 09/16/18 04:17 0.5 K/mm3 (0.0-0.8) 09/16/18 04:17 0.0 K/mm3 (0.0-0.4) 09/16/18 04:17 0.0 K/mm3 (0.0-0.1) 09/16/18 04:17 0.0 K/mm3 09/16/18 04:17 0.1 K/mm3 09/16/18 04:17 0.0 K/mm3 09/16/18 04:17 Blast Cells # 0.0 K/mm3 09/16/18 04:17 WBC Morphology Not Reportable 09/16/18 04:17 Hypersegmented Neuts Not Reportable 09/16/18 04:17 Hyposegmented Neuts Not Reportable 09/16/18 04:17 Hypogranular Neuts Not Reportable 09/16/18 04:17 Not Reportable 09/16/18 04:17 Not Reportable 09/16/18 04:17 Not Reportable 09/16/18 04:17 Not Reportable 09/16/18 04:17 Not Reportable 09/16/18 04:17 Not Reportable 09/16/18 04:17 Consistent w auto 09/16/18 04:17 Not Reportable 09/16/18 04:17 Plt Clumps, EDTA Not Reportable 09/16/18 04:17 Not Reportable 09/16/18 04:17 Not Reportable 09/16/18 04:17 Not Reportable 09/16/18 04:17 Plt Morphology Comment Not Reportable 09/16/18 04:17 RBC Morphology Normal 09/16/18 04:17 Dimorphic RBCs Not Reportable 09/16/18 04:17 Not Reportable 09/16/18 04:17 Not Reportable 09/16/18 04:17 Not Reportable 09/16/18 04:17 Not Reportable 09/16/18 04:17 Not Reportable 09/16/18 04:17 Not Reportable 09/16/18 04:17 Not Reportable 09/16/18 04:17 Not Reportable 09/16/18 04:17 Not Reportable 09/16/18 04:17 Not Reportable 09/16/18 04:17 Not Reportable 09/16/18 04:17 Not Reportable 09/16/18 04:17 Not Reportable 09/16/18 04:17 Not Reportable 09/16/18 04:17 Not Reportable 09/16/18 04:17 Not Reportable 09/16/18 04:17 Not Reportable 09/16/18 04:17 Not Reportable 09/16/18 04:17 Not Reportable 09/16/18 04:17 Acanthocytes (Spur) Not Reportable 09/16/18 04:17 Rouleaux Not Reportable 09/16/18 04:17 Not Reportable 09/16/18 04:17 Not Reportable 09/16/18 04:17 Not Reportable 09/16/18 04:17 Not Reportable 09/16/18 04:17 Hem Pathologist Commnt No 09/16/18 04:17 PT 20.9 Sec. (12.2-14.9) H 09/15/18 03:43 INR 1.85 (0.87-1.13) H 09/15/18 03:43 APTT 27.8 Sec. (24.2-36.6) 09/15/18 03:43 Sodium 144 mmol/L (137-145) D 09/16/18 04:17 Potassium 3.3 mmol/L (3.6-5.0) L 09/16/18 04:17 Chloride 109.7 mmol/L (98-107) H 09/16/18 04:17 Carbon Dioxide 16 mmol/L (22-30) L 09/16/18 04:17 22 mmol/L 09/16/18 04:17 BUN 31 mg/dL (7-17) H 09/16/18 04:17 1.3 mg/dL (0.7-1.2) H 09/16/18 04:17 Estimated GFR 50 ml/min 09/16/18 04:17 24 % 09/16/18 04:17 Glucose 370 mg/dL (65-100) H 09/16/18 04:17 POC Glucose 395 (70-105) H 09/16/18 12:54 Lactic Acid 1.80 mmol/L (0.7-2.0) 09/15/18 07:02 Calcium 10.3 mg/dL (8.4-10.2) H 09/16/18 04:17 1.00 mg/dL (0.1-1.2) 09/15/18 03:43 AST 25 units/L (5-40) 09/15/18 03:43 ALT 24 units/L (7-56) 09/15/18 03:43 176 units/L (35-129) H 09/15/18 03:43 65 units/L (30-135) 09/15/18 11:29 CK-MB (CK-2) 1.8 ng/mL (0.0-4.0) 09/15/18 11:29 CK-MB (CK-2) Rel Index 2.7 (0-4) 09/15/18 11:29 < 0.010 ng/mL (0.00-0.029) 09/15/18 11:29 7.6 g/dL (6.3-8.2) 09/15/18 03:43 2.9 g/dL (3.9-5) L 09/15/18 03:43 0.6 % 09/15/18 03:43 Yellow (Yellow) 09/15/18 03:39 Cloudy (Clear) 09/15/18 03:39 6.0 (5.0-7.0) 09/15/18 03:39 Ur Specific [place] 1.014 (1.003-1.030) 09/15/18 03:39 100 mg/dl mg/dL (Negative) 09/15/18 03:39 >=500 mg/dL (Negative) 09/15/18 03:39 Tr mg/dL (Negative) 09/15/18 03:39 Mod (Negative) 09/15/18 03:39 Neg (Negative) 09/15/18 03:39 Neg (Negative) 09/15/18 03:39 < 2.0 mg/dL (<2.0) 09/15/18 03:39 Ur Leukocyte Esterase Lg (Negative) 09/15/18 03:39 > 182.0 /HPF (0.0-6.0) H 09/15/18 03:39 5.0 /HPF (0.0-6.0) 09/15/18 03:39 1+ /HPF (Negative) 09/15/18 03:39 Few /HPF 09/15/18 03:39 Few /HPF 09/15/18 03:39 Active Medications - Current Medications Current Medications: Generic Name Dose Route Start Last Admin Trade Name Freq PRN Reason Stop Dose Admin Acetaminophen 650 mg 09/15/18 05:41 09/15/18 23:20 Tylenol PO 650 mg Q4H PRN Administration Pain MILD(1-3)/Fever >100.5/WHALEN Acetaminophen 650 mg 09/15/18 08:49 09/15/18 14:34 Tylenol [place] 650 mg Q4H PRN Administration Pain, Mild (1-3) Atorvastatin Calcium 20 mg 09/15/18 22:00 09/15/18 23:20 Lipitor PO 20 mg QHS REJI Administration Cholecalciferol 1,000 unit 09/15/18 10:00 09/16/18 09:39 Vitamin D3 PO 1,000 unit DAILY REJI Administration Dextrose 50 ml 09/16/18 14:08 D50w (25gm) Syringe IV PRN PRN Hypoglycemia Norepinephrine 4 mg in 250 mls @ 7.5 mls/hr 09/15/18 06:00 09/16/18 12:43 Levophed Drip 4 Mg/Ns 250 Ml IV 0 mcg/min TITR REJI 0 mls/hr Titration Protocol 2 MCG/MIN Sodium Chloride 1,000 mls @ 125 mls/hr 09/15/18 06:00 09/16/18 09:49 Nacl 0.9% 1000 Ml IV 125 mls/hr DIRECT REJI Administration Piperacillin Sod/Tazobactam Sod 3.375 gm in 50 mls @ 100 mls/hr 09/15/18 14:00 09/16/18 13:49 Zosyn/Ns 3.375gm/50ml IV 100 mls/hr Q8HR REJI Administration Potassium Chloride 10 meq in 100 mls @ 100 mls/hr 09/16/18 11:00 09/16/18 13:15 Kcl 10meq/100ml IV 09/16/18 14:59 100 mls/hr Q1H REJI Administration Insulin Human Lispro 0 unit 09/16/18 15:00 Humalog SUB-Q Q4H REJI Protocol Ondansetron HCl 4 mg 09/15/18 05:41 Zofran IV Q8H PRN Nausea And Vomiting Pantoprazole Sodium 20 mg 09/15/18 10:00 09/16/18 09:39 Protonix PO 20 mg QDAY REJI Administration Rivaroxaban 20 mg 09/15/18 18:00 09/15/18 17:56 Xarelto PO 20 mg QPM REJI Administration Protocol Sodium Chloride 10 ml 09/15/18 10:00 09/16/18 09:39 Sodium Chloride Flush Syringe 10 Ml IV 10 ml BID REJI Administration Sodium Chloride 10 ml 09/15/18 05:41 Sodium Chloride Flush Syringe 10 Ml IV PRN PRN LINE FLUSH
[2018-09-16] MEDS: HumaLOG SUB-Q SCH ×4 (14:26→22:07)
[2018-09-16] MEDS: TYLENOL PO PRN (17:45)
[2018-09-16] MEDS: XARELTO PO SCH (17:45)
[2018-09-16] MEDS: ZOFRAN IV PRN (18:01)
--- NOTE | 2018-09-16 18:10 | Consultation ---
History of Present Illness - Reason for Consult Consult date: 09/16/18 bacteremia Requesting physician: PAMELLA OCHOA - History of Present Illness 67 y/o female with history of diabetes, hypertension, previous UTIs, [facility], admitted on 09/15/2018 due to 2-day history of altered mental status and fever. Patient is confused and could not provide details of history. In the emergency room, temp 104.3, HR 161, R 20, BP 129/78, O2 sat 95%. WBC 7.6. Plat 82. Band 15%. Creat 1.6. Lactate 2.6. UA wbc 182, LE large. Blood culture 09/15/2018 GNR 4 of 4 bottles. She was found to be in V. tach with a rate of 160s, she was given adenosine twice without resolution then given amiodarone IV and placed on levophed via right chin right Interosseous (IO) IV. Review of Systems: unable to obtain due to confusion Past History Past Medical History: diabetes, hypertension Past Surgical History: No surgical history Medications and Allergies Allergies Allergy/AdvReac Type Severity Reaction Status Date / Time gabapentin Allergy Unknown Verified 09/15/18 03:23 Sulfa (Sulfonamide Allergy Unknown Verified 09/15/18 03:23 Antibiotics) Home Medications Medication Instructions Recorded Confirmed Last Taken Type Amlodipine Besylate [Norvasc] 10 mg PO DAILY 09/15/18 09/15/18 09/14/18 History Atorvastatin Calcium [Lipitor] 20 mg PO QDAY 09/15/18 09/15/18 09/14/18 History Cholecalciferol Vit D3 [Vitamin D3 1,000 unit PO DAILY 09/15/18 09/15/18 09/14/18 History 1,000 UNIT TAB] HYDROcodone/APAP 5-325 [[place] 1 each PO Q4HR PRN 09/15/18 09/15/18 09/14/18 History 5/325] Hydralazine HCl 50 mg PO PRN 09/15/18 09/15/18 09/14/18 History Lactulose [Cephulac] 20 gm PO DAILY 09/15/18 09/15/18 09/14/18 History Linagliptin [Tradjenta] 5 mg PO QDAY 09/15/18 09/15/18 09/14/18 History Magnesium Hydroxide [Milk of 400 mg PO DAILY 09/15/18 09/15/18 09/14/18 History Magnesia] Pantoprazole Sodium [Protonix] 20 mg PO DAILY 09/15/18 09/15/18 09/14/18 History Rivaroxaban [Xarelto] 20 mg PO QDAY 09/15/18 09/15/18 09/14/18 History cloNIDine [Catapres] 0.2 mg PO PRN 09/15/18 09/15/18 09/14/18 History Active Meds: Active Medications Acetaminophen (Tylenol) 650 mg PO Q4H PRN PRN Reason: Pain MILD(1-3)/Fever >100.5/WHALEN Last Admin: 09/16/18 17:45 Dose: 650 mg Documented by: Acetaminophen (Tylenol) 650 mg ND Q4H PRN PRN Reason: Pain, Mild (1-3) Last Admin: 09/15/18 14:34 Dose: 650 mg Documented by: Atorvastatin Calcium (Lipitor) 20 mg PO QHS REJI Last Admin: 09/15/18 23:20 Dose: 20 mg Documented by: Cholecalciferol (Vitamin D3) 1,000 unit PO DAILY REJI Last Admin: 09/16/18 09:39 Dose: 1,000 unit Documented by: Dextrose (D50w (25gm) Syringe) 50 ml IV PRN PRN PRN Reason: Hypoglycemia Norepinephrine (Levophed Drip 4 Mg/Ns 250 Ml) 4 mg in 250 mls @ 7.5 mls/hr IV TITR REJI; Protocol Last Titration: 09/16/18 12:43 Dose: 0 mcg/min, 0 mls/hr Documented by: Sodium Chloride (Nacl 0.9% 1000 Ml) 1,000 mls @ 125 mls/hr IV DIRECT REJI Last Admin: 09/16/18 09:49 Dose: 125 mls/hr Documented by: Piperacillin Sod/Tazobactam Sod (Zosyn/Ns 3.375gm/50ml) 3.375 gm in 50 mls @ 100 mls/hr IV Q8HR REJI Last Admin: 09/16/18 13:49 Dose: 100 mls/hr Documented by: Insulin Human Lispro (Humalog) 0 unit SUB-Q Q4H REJI; Protocol Last Admin: 09/16/18 16:00 Dose: Not Given Documented by: Ondansetron HCl (Zofran) 4 mg IV Q8H PRN PRN Reason: Nausea And Vomiting Last Admin: 09/16/18 18:01 Dose: 4 mg Documented by: Pantoprazole Sodium (Protonix) 20 mg PO QDAY [facility] Last Admin: 09/16/18 09:39 Dose: 20 mg Documented by: Rivaroxaban (Xarelto) 20 mg PO QPM [facility]; Protocol Last Admin: 09/16/18 17:45 Dose: 20 mg Documented by: Sodium Chloride (Sodium Chloride Flush Syringe 10 Ml) 10 ml IV BID [facility] Last Admin: 09/16/18 09:39 Dose: 10 ml Documented by: Sodium Chloride (Sodium Chloride Flush Syringe 10 Ml) 10 ml IV PRN PRN PRN Reason: LINE FLUSH Physical Examination - Physical Exam Narrative exam: General appearance: Alert in NAD anxious confused Eyes: anicteric sclerae, moist conjunctivae; no lid-lag; PERRLA HENT: Atraumatic; oropharynx clear Neck: Trachea midline; supple, no thyromegaly or lymphadenopathy Lungs: CTA, with normal respiratory effort and no intercostal retractions CV: RRR Abdomen: Soft, non tender Extremities: no edema, cyanosis, right calf IO Skin: Normal temperature, turgor and texture; no rash, ulcers or subcutaneous nodules Psych: anxious. Neuro: alert and confused Moving all extermities - Constitutional Vitals: Vital Signs Temp Pulse Resp BP Pulse Ox 98.7 F 113 H 22 139/72 97 09/16/18 12:00 09/16/18 15:51 09/16/18 15:51 09/16/18 15:51 09/16/18 15:51 Temperature -Last 24 Hours Temperature 98.7 F Temperature 98.7 F Temperature 99.4 F Temperature 100.6 F Temperature 100.5 F Results - Labs CBC & Chem 7: 09/16/18 04:17 09/16/18 04:17 Labs: Abnormal lab results 09/16/18 09/16/18 09/16/18 Range/Units 00:40 04:17 04:17 WBC 11.6 H (4.5-11.0) K/mm3 RDW 16.5 H (13.2-15.2) % Plt Count 65 L (140-440) K/mm3 Seg Neuts % (Manual) 78.0 H (40.0-70.0) % Lymphocytes % (Manual) 1.0 L (13.4-35.0) % Seg Neutrophils # Man 9.0 H (1.8-7.7) K/mm3 Lymphocytes # (Manual) 0.1 L (1.2-5.4) K/mm3 Potassium 3.3 L (3.6-5.0) mmol/L Chloride 109.7 H (98-107) mmol/L Carbon Dioxide 16 L (22-30) mmol/L BUN 31 H (7-17) mg/dL Creatinine 1.3 H (0.7-1.2) mg/dL Glucose 370 H (65-100) mg/dL POC Glucose 368 H (70-105) Calcium 10.3 H (8.4-10.2) mg/dL 09/16/18 09/16/18 09/16/18 Range/Units 05:28 12:54 14:28 WBC (4.5-11.0) K/mm3 RDW (13.2-15.2) % Plt Count (140-440) K/mm3 Seg Neuts % (Manual) (40.0-70.0) % Lymphocytes % (Manual) (13.4-35.0) % Seg Neutrophils # Man (1.8-7.7) K/mm3 Lymphocytes # (Manual) (1.2-5.4) K/mm3 Potassium (3.6-5.0) mmol/L Chloride (98-107) mmol/L Carbon Dioxide (22-30) mmol/L BUN (7-17) mg/dL Creatinine (0.7-1.2) mg/dL Glucose (65-100) mg/dL POC Glucose 373 H 395 H 360 H (70-105) Calcium (8.4-10.2) mg/dL Assessment and Plan Cultures: Blood culture 09/15/2018 GNR 4 of 4 bottles. Assessment: 1) Severe sepsis with initial septic shock: Present on admission, manifested by hypotension, tachycardia, bandemia, increased lactate requiring pressors, currently off levophed. Etiology most likely GNR bacteremia from UTI. 2) GNR bacteremia from UTI: Blood culture 09/15/2018 GNR 4 of 4 bottles. 3) Acute encephalopathy: better 4) Thrombocytopenia: from sepsis 5) Vtach 6) CONSTANZA Recommendations: - f/u blood culture ID and MICs - stop zosyn - start cefepime renally adjusted - renal US - midline, avoid PICC with positive blood culture Will follow. Dr Willams rounding tomorrow. Kelly Arceo MD Infectious Diseases Agricultural Service Worker [facility] ([facility]) M [phone] O [phone]
[2018-09-16] MEDS ORDERED: PROVENTIL IH PRN (18:11)
--- NOTE | 2018-09-16 19:07 | XRay Report ---
CHEST 1 VIEW 6:33 PM INDICATION / CLINICAL INFORMATION: Aspiration. Dyspnea. COMPARISON: Yesterday. FINDINGS: SUPPORT DEVICES: None. HEART / MEDIASTINUM: No significant abnormality. LUNGS / PLEURA: There is mild patchy parenchymal disease in both perihilar regions and central lung z ones, new since the prior study. No pneumothorax. ADDITIONAL FINDINGS: There is slight gaseous distention of the stomach. IMPRESSION: Interval development of mild patchy parenchymal disease in both perihilar regions/central lung zones. Differential diagnosis includes developing edema or possibly early aspiration pneumonia. Signer Name: Robb Baxter MD Signed: 09/16/2018 7:02 PM Workstation Name: [id number]
[2018-09-17] MEDS ORDERED: MORPHINE IV ONE (00:53)
[2018-09-17] MEDS: ZOFRAN IV PRN ×2 (01:08→21:26)
[2018-09-17] MEDS: HumaLOG SUB-Q SCH ×5 (03:04→20:50)
[2018-09-17] MEDS: TYLENOL PR PRN ×2 (03:42→08:46)
[2018-09-17 04:07] LABS: Hematocrit 37.5 % (30.3-42.9); Hemoglobin 12.4 gm/dl (10.1-14.3); Mean Corpuscular HGB Conc 33 % (30-34); Mean Corpuscular Volume 90 fl (79-97); Red Blood Count 4.18 M/mm3 (3.65-5.03); Red Cell Distribution Width 17.1 % (13.2-15.2)
[2018-09-17 04:10] LABS: Platelet Count 47 K/mm3 (140-440)
[2018-09-17 04:27] LABS: BUN/Creatinine Ratio 24; Blood Urea Nitrogen 26 mg/dL (7-17); Calcium 9.9 mg/dL (8.4-10.2); Hemolysis Index 2
[2018-09-17] MEDS: ZOSYN/NS 3.375GM/50ML 3.375 GM/50 ML BAG IV SCH (06:08)
[2018-09-17] MEDS: NACL 0.9% 1000 ML 1,000 ML IV SCH ×2 (06:11→09:37)
[2018-09-17] MEDS: TYLENOL PO PRN (08:23)
[2018-09-17] MEDS ORDERED: MAXIPIME/NS 2 GM/100 ML 2 GM/100 ML BAG IV SCH (10:00)
[2018-09-17] MEDS: SODIUM CHLORIDE FLUSH SYRINGE 10 ML IV SCH ×2 (10:02→21:26)
--- NOTE | 2018-09-17 10:22 | Progress Note ---
Assessment and Plan Assessment and plan: Patient is a 67 yo woman from [facility] (this if patient first visit in our EMR) with a history of (per chart) UTI, DVT, DM type 2 and hypertension (patient is unable to give any additional history) who presented to [facility] ED with ANNA, fevers and AMS. Advance directives paperwork from [facility] shows that patient is DNR and No Hospitalizations but patient changed her mind and wanted to be hospitalize but she does not want to be resuscitated. In the emergency room, she was found to be in V. tach with a rate of 160s, she was given adenosine twice without resolution then given amiodarone IV which decreased HR to 120s. She was admitted to ICU on IV amidorone drip alone with Levophed vasopressor via right chin right Interosseous (IO) IV. Sepsis UTI with suspected shock, poa with Gram negative bacteremia: consulted ID, ordered Urine culture (I do not know why it wasn't send on admission), remove acosta, place Purewack, weaned off 2 mcg Levophed Proteus mirablis bacteremia: added Levaquin based on sensitivities, ID is following Acute encephalopathy, resolved Vtach/ Wide complex tachycardia: wean off Amiodarone drip, consult Cardiology, input noted, ECHO done await reading. ARF, with ATN, poa now resolved Hypotension weaned off vasopressors Hypokalemia: replete and recheck Diabetes mellitus type 2: added SSI h/o DVT: on Xarelto, will hold due to plt of 47 Functional quadriplegia, she denies a stroke: order PT/OT Thrombocytopenia: consulted Heme/Oncology, hold Xarelto and monitor for any bleeding DNR, verified with patient removed acosta, removes IO from right leg/mckeon on Monday Midline line placed on Monday09/16/18 weaned off Levophed with IVF NSS platelets down to 47, hold Xarelto, continue to monitor Consulted ID, input noted I Ordered urine culture but patient was already started on abx from ED and follow results CCT 32 minutes History Interval history: Patient was seen and examined. Follow-up on current diagnosis AMS and fevers. No overnight events reported to me. Imaging, nursing note, chart, labs and old chart reviewed. Patient is a/o x 3, she tells me that she changed her mind regarding coming to the hospital but she still doesn't want to be resuscitated, Nurse Negra as witness. Hospitalist Physical - Physical exam Narrative exam: Gen: chronic disable, ill appearing, NAD, Awake, Alert, Orientated x 3 HEENT: NCAT, EOMI, PERRL, OP Clear Neck: supple, no adenopathy, no thyromegaly, no JVD CVS/Heart: Regular tachycardia, normal S1S2, pulses present bilaterally Chest/Lungs: CTA B, Symmetrical chest expansion, good air entry bilaterally GI/Abdomen: soft, NTND, good bowel sounds, no guarding or rebound /Bladder: no suprapubic tenderness, no CVA or paraspinal tenderness, Extermity/Skin: atrophic bilateral legs with muscle wasting, no c/c/e, no obvious rash MSK: FROM x 3, right hemiparesis not Neuro: CN 2-12 grossly intact, no new focal deficits, Psych: calm - Constitutional Vitals: Temp Pulse Resp BP Pulse Ox 103.0 F H 128 H 22 100/60 96 09/17/18 08:00 09/17/18 09:00 09/17/18 09:00 09/17/18 09:00 09/17/18 09:00 General appearance: Present: no acute distress, obese Results - Labs CBC & Chem 7: 09/17/18 03:24 09/17/18 03:24 Labs: Laboratory Last Values WBC 7.9 K/mm3 (4.5-11.0) 09/17/18 03:24 RBC 4.18 M/mm3 (3.65-5.03) 09/17/18 03:24 Hgb 12.4 gm/dl (10.1-14.3) 09/17/18 03:24 Hct 37.5 % (30.3-42.9) 09/17/18 03:24 MCV 90 fl (79-97) 09/17/18 03:24 MCH 30 pg (28-32) 09/17/18 03:24 MCHC 33 % (30-34) 09/17/18 03:24 RDW 17.1 % (13.2-15.2) H 09/17/18 03:24 Plt Count 47 K/mm3 (140-440) L 09/17/18 03:24 Add Manual Diff Complete 09/16/18 04:17 Total Counted 100 09/16/18 04:17 Seg Neutrophils % Cutter V Groove 09/16/18 04:17 Seg Neuts % (Manual) 78.0 % (40.0-70.0) H 09/16/18 04:17 16.0 % 09/16/18 04:17 1.0 % (13.4-35.0) L 09/16/18 04:17 Reactive Lymphs % (Man) 0 % 09/16/18 04:17 4.0 % (0.0-7.3) 09/16/18 04:17 0 % (0.0-4.3) 09/16/18 04:17 0 % (0.0-1.8) 09/16/18 04:17 0 % 09/16/18 04:17 1.0 % 09/16/18 04:17 0 % 09/16/18 04:17 0 % 09/16/18 04:17 Nucleated RBC % Not Reportable 09/16/18 04:17 Seg Neutrophils # Man 9.0 K/mm3 (1.8-7.7) H 09/16/18 04:17 Band Neutrophils # 1.9 K/mm3 09/16/18 04:17 0.1 K/mm3 (1.2-5.4) L 09/16/18 04:17 Abs React Lymphs (Man) 0.0 K/mm3 09/16/18 04:17 0.5 K/mm3 (0.0-0.8) 09/16/18 04:17 0.0 K/mm3 (0.0-0.4) 09/16/18 04:17 0.0 K/mm3 (0.0-0.1) 09/16/18 04:17 0.0 K/mm3 09/16/18 04:17 0.1 K/mm3 09/16/18 04:17 0.0 K/mm3 09/16/18 04:17 Blast Cells # 0.0 K/mm3 09/16/18 04:17 WBC Morphology Not Reportable 09/16/18 04:17 Hypersegmented Neuts Not Reportable 09/16/18 04:17 Hyposegmented Neuts Not Reportable 09/16/18 04:17 Hypogranular Neuts Not Reportable 09/16/18 04:17 Not Reportable 09/16/18 04:17 Not Reportable 09/16/18 04:17 Not Reportable 09/16/18 04:17 Not Reportable 09/16/18 04:17 Not Reportable 09/16/18 04:17 Not Reportable 09/16/18 04:17 Consistent w auto 09/16/18 04:17 Not Reportable 09/16/18 04:17 Plt Clumps, EDTA Not Reportable 09/16/18 04:17 Not Reportable 09/16/18 04:17 Not Reportable 09/16/18 04:17 Not Reportable 09/16/18 04:17 Plt Morphology Comment Not Reportable 09/16/18 04:17 RBC Morphology Normal 09/16/18 04:17 Dimorphic RBCs Not Reportable 09/16/18 04:17 Not Reportable 09/16/18 04:17 Not Reportable 09/16/18 04:17 Not Reportable 09/16/18 04:17 Not Reportable 09/16/18 04:17 Not Reportable 09/16/18 04:17 Not Reportable 09/16/18 04:17 Not Reportable 09/16/18 04:17 Not Reportable 09/16/18 04:17 Not Reportable 09/16/18 04:17 Not Reportable 09/16/18 04:17 Not Reportable 09/16/18 04:17 Not Reportable 09/16/18 04:17 Not Reportable 09/16/18 04:17 Not Reportable 09/16/18 04:17 Not Reportable 09/16/18 04:17 Not Reportable 09/16/18 04:17 Not Reportable 09/16/18 04:17 Not Reportable 09/16/18 04:17 Not Reportable 09/16/18 04:17 Acanthocytes (Spur) Not Reportable 09/16/18 04:17 Rouleaux Not Reportable 09/16/18 04:17 Not Reportable 09/16/18 04:17 Not Reportable 09/16/18 04:17 Not Reportable 09/16/18 04:17 Not Reportable 09/16/18 04:17 Hem Pathologist Commnt No 09/16/18 04:17 PT 20.9 Sec. (12.2-14.9) H 09/15/18 03:43 INR 1.85 (0.87-1.13) H 09/15/18 03:43 APTT 27.8 Sec. (24.2-36.6) 09/15/18 03:43 Sodium 146 mmol/L (137-145) H 09/17/18 03:24 Potassium 3.1 mmol/L (3.6-5.0) L 09/17/18 03:24 Chloride 115.1 mmol/L (98-107) H 09/17/18 03:24 Carbon Dioxide 16 mmol/L (22-30) L 09/17/18 03:24 18 mmol/L 09/17/18 03:24 BUN 26 mg/dL (7-17) H 09/17/18 03:24 1.1 mg/dL (0.7-1.2) 09/17/18 03:24 Estimated GFR > 60 ml/min 09/17/18 03:24 24 % 09/17/18 03:24 Glucose 260 mg/dL (65-100) H 09/17/18 03:24 POC Glucose 205 (70-105) H 09/17/18 07:43 Lactic Acid 1.80 mmol/L (0.7-2.0) 09/15/18 07:02 Calcium 9.9 mg/dL (8.4-10.2) 09/17/18 03:24 1.00 mg/dL (0.1-1.2) 09/15/18 03:43 AST 25 units/L (5-40) 09/15/18 03:43 ALT 24 units/L (7-56) 09/15/18 03:43 176 units/L (35-129) H 09/15/18 03:43 65 units/L (30-135) 09/15/18 11:29 CK-MB (CK-2) 1.8 ng/mL (0.0-4.0) 09/15/18 11:29 CK-MB (CK-2) Rel Index 2.7 (0-4) 09/15/18 11:29 < 0.010 ng/mL (0.00-0.029) 09/15/18 11:29 7.6 g/dL (6.3-8.2) 09/15/18 03:43 2.9 g/dL (3.9-5) L 09/15/18 03:43 0.6 % 09/15/18 03:43 Yellow (Yellow) 09/15/18 03:39 Cloudy (Clear) 09/15/18 03:39 6.0 (5.0-7.0) 09/15/18 03:39 Ur Specific [place] 1.014 (1.003-1.030) 09/15/18 03:39 100 mg/dl mg/dL (Negative) 09/15/18 03:39 >=500 mg/dL (Negative) 09/15/18 03:39 Tr mg/dL (Negative) 09/15/18 03:39 Mod (Negative) 09/15/18 03:39 Neg (Negative) 09/15/18 03:39 Neg (Negative) 09/15/18 03:39 < 2.0 mg/dL (<2.0) 09/15/18 03:39 Ur Leukocyte Esterase Lg (Negative) 09/15/18 03:39 > 182.0 /HPF (0.0-6.0) H 09/15/18 03:39 5.0 /HPF (0.0-6.0) 09/15/18 03:39 1+ /HPF (Negative) 09/15/18 03:39 Few /HPF 09/15/18 03:39 Few /HPF 09/15/18 03:39 Active Medications - Current Medications Current Medications: Generic Name Dose Route Start Last Admin Trade Name Freq PRN Reason Stop Dose Admin Acetaminophen 650 mg 09/15/18 05:41 09/16/18 17:45 Tylenol PO 650 mg Q4H PRN Administration Pain MILD(1-3)/Fever >100.5/WHALEN Acetaminophen 650 mg 09/15/18 08:49 09/17/18 08:46 Tylenol PA 650 mg Q4H PRN Administration Pain, Mild (1-3) Albuterol 2.5 mg 09/16/18 18:11 Proventil IH Q4H PRN Shortness Of Breath Atorvastatin Calcium 20 mg 09/15/18 22:00 09/16/18 21:39 Lipitor PO 20 mg QHS REJI Administration Cholecalciferol 1,000 unit 09/15/18 10:00 09/16/18 09:39 Vitamin D3 PO 1,000 unit DAILY REJI Administration Dextrose 50 ml 09/16/18 14:08 D50w (25gm) Syringe IV PRN PRN Hypoglycemia Norepinephrine 4 mg in 250 mls @ 7.5 mls/hr 09/15/18 06:00 09/16/18 12:43 Levophed Drip 4 Mg/Ns 250 Ml IV 0 mcg/min TITR REJI 0 mls/hr Titration Protocol 2 MCG/MIN Sodium Chloride 1,000 mls @ 42 mls/hr 09/15/18 06:00 09/17/18 09:37 Nacl 0.9% 1000 Ml IV 42 mls/hr DIRECT REJI Administration Cefepime HCl 2 gm in 100 mls @ 200 mls/hr 09/17/18 10:00 09/17/18 09:54 Maxipime/Ns 2 Gm/100 Ml IV 200 mls/hr Q12HR REJI Administration Potassium Chloride 20 meq in 100 mls @ 100 mls/hr 09/17/18 11:00 Kcl 20meq/100ml IV 09/17/18 12:59 Q1H REJI Insulin Human Lispro 0 unit 09/16/18 15:00 09/17/18 07:00 Humalog SUB-Q 4 unit Q4H REJI Administration Protocol Ondansetron HCl 4 mg 09/15/18 05:41 09/17/18 01:08 Zofran IV 4 mg Q8H PRN Administration Nausea And Vomiting Pantoprazole Sodium 20 mg 09/15/18 10:00 09/16/18 09:39 Protonix PO 20 mg QDAY REJI Administration Rivaroxaban 20 mg 09/15/18 18:00 09/16/18 17:45 Xarelto PO 20 mg QPM REJI Administration Protocol Sodium Chloride 10 ml 09/15/18 10:00 09/17/18 10:02 Sodium Chloride Flush Syringe 10 Ml IV 10 ml BID REJI Administration Sodium Chloride 10 ml 09/15/18 05:41 Sodium Chloride Flush Syringe 10 Ml IV PRN PRN LINE FLUSH
--- NOTE | 2018-09-17 10:28 | Progress Note ---
Assessment and Plan Sepsis thought s/t UTI AMS Fever UTI Thrombocytopenia Hypokalemia Hx of DVT on Xarelto Diabetes Hypertension Reflex sinus tachycardia DNR status An echocardiogram this admission reports a normal left ventricular systolic function, EF 55-60%. Conservative cardiac management. Subjective Date of service: 09/17/18 Interval history: Patient is resting in bed comfortably. She denies chest pain and shortness of breath. Stable sinus rhythm on telemetry. Objective Vital Signs Temp Pulse Pulse Pulse Pulse Resp BP 09/17/18 09:00 128 H 22 100/60 09/17/18 08:30 134 H 26 H 113/64 09/17/18 08:00 103.0 F H 135 H 135 H 26 H 112/62 09/17/18 07:30 136 H 25 H 107/62 09/17/18 07:20 137 H 25 H 104/60 09/17/18 07:10 139 H 27 H 107/60 09/17/18 07:00 138 H 29 H 107/60 09/17/18 06:50 139 H 26 H 104/60 09/17/18 06:40 140 H 27 H 104/60 09/17/18 06:30 139 H 26 H 104/60 09/17/18 06:20 138 H 27 H 104/62 09/17/18 06:10 139 H 29 H 104/60 09/17/18 06:00 139 H 22 104/60 09/17/18 05:50 140 H 28 H 104/62 09/17/18 05:40 138 H 26 H 104/62 09/17/18 05:30 139 H 25 H 104/62 09/17/18 05:20 141 H 25 H 103/63 09/17/18 05:10 138 H 25 H 103/63 09/17/18 05:00 140 H 22 103/63 09/17/18 04:50 140 H 27 H 120/64 09/17/18 04:40 141 H 28 H 120/64 09/17/18 04:30 139 H 28 H 120/64 09/17/18 04:20 143 H 27 H 122/67 09/17/18 04:10 143 H 27 H 122/67 09/17/18 04:00 144 H 29 H 112/65 09/17/18 03:50 143 H 26 H 122/67 09/17/18 03:48 102.3 F H 09/17/18 03:40 142 H 30 H 122/67 09/17/18 03:30 144 H 29 H 144/73 09/17/18 03:20 143 H 28 H 144/73 09/17/18 03:10 147 H 27 H 144/73 09/17/18 03:00 144 H 145 H 145 H 145 H 28 H 136/67 09/17/18 02:50 145 H 29 H 159/85 09/17/18 02:40 146 H 30 H 159/85 09/17/18 02:30 151 H 28 H 159/85 09/17/18 02:20 150 H 29 H 159/85 09/17/18 02:10 152 H 28 H 159/85 09/17/18 02:00 151 H 28 H 185/104 09/17/18 01:50 144 H 27 H 185/104 09/17/18 01:40 145 H 29 H 185/104 09/17/18 01:39 24 09/17/18 01:30 148 H 24 185/104 09/17/18 01:20 148 H 23 185/104 09/17/18 01:10 145 H 23 185/104 09/17/18 01:09 25 H 09/17/18 01:00 149 H 24 185/104 09/17/18 00:50 139 H 22 183/92 09/17/18 00:40 130 H 25 H 193/95 09/17/18 00:30 123 H 22 109/64 09/17/18 00:20 108 H 24 109/64 09/17/18 00:10 98 H 22 109/64 09/17/18 00:00 98.9 F 96 H 18 96/50 09/16/18 23:50 100 H 20 96/50 09/16/18 23:40 105 H 16 96/50 09/16/18 23:30 105 H 25 H 109/64 09/16/18 23:20 105 H 18 89/48 09/16/18 23:10 109 H 17 89/48 09/16/18 23:00 106 H 112 H 112 H 112 H 16 96/50 09/16/18 22:50 105 H 15 89/48 09/16/18 22:40 106 H 18 89/48 09/16/18 22:30 103 H 17 114/59 07/07/19 22:20 100 H 16 114/59 09/16/18 22:10 97 H 22 114/59 09/16/18 22:02 97 H 16 114/59 09/16/18 22:00 97 H 32 H 114/59 09/16/18 21:50 105 H 24 110/67 09/16/18 21:40 107 H 29 H 110/67 09/16/18 21:30 105 H 16 110/67 09/16/18 21:20 108 H 22 108/65 09/16/18 21:10 107 H 18 108/65 09/16/18 21:00 109 H 17 108/65 09/16/18 20:50 108 H 16 09/16/18 20:40 106 H 17 129/80 09/16/18 20:30 108 H 18 129/80 09/16/18 20:21 103 H 17 111/73 09/16/18 20:11 104 H 17 111/73 09/16/18 20:00 98.9 F 101 H 18 111/73 09/16/18 19:52 111 H 111 H 111 H 09/16/18 19:51 111 H 25 H 111/67 09/16/18 19:41 112 H 26 H 115/70 09/16/18 19:30 113 H 24 115/70 09/16/18 19:21 118 H 18 116/81 09/16/18 19:11 116 H 22 111/67 09/16/18 19:00 114 H 19 111/67 09/16/18 18:51 113 H 21 134/79 09/16/18 18:41 116 H 19 116/81 09/16/18 18:30 124 H 21 134/79 09/16/18 18:21 122 H 27 H 133/79 09/16/18 18:10 128 H 29 H 141/80 09/16/18 18:01 132 H 31 H 153/87 09/16/18 18:00 99.7 F H 132 H 09/16/18 17:50 100 H 20 133/78 09/16/18 17:41 109 H 26 H 139/74 09/16/18 17:30 114 H 26 H 139/74 09/16/18 17:21 115 H 24 133/73 07/07/19 17:11 115 H 19 127/73 09/16/18 17:00 119 H 24 127/73 09/16/18 16:51 117 H 21 151/73 09/16/18 16:41 114 H 22 134/77 09/16/18 16:30 119 H 14 134/77 09/16/18 16:21 113 H 32 H 138/79 09/16/18 16:11 114 H 27 H 139/72 09/16/18 16:00 113 H 30 H 145/78 09/16/18 15:51 113 H 22 139/72 09/16/18 15:41 110 H 26 H 126/85 09/16/18 15:30 114 H 13 134/77 09/16/18 15:21 113 H 23 126/85 09/16/18 15:10 113 H 23 140/78 09/16/18 15:00 113 H 21 140/78 09/16/18 14:51 112 H 21 148/80 09/16/18 14:41 111 H 18 129/76 09/16/18 14:30 110 H 17 129/76 09/16/18 14:21 108 H 18 130/76 09/16/18 14:11 110 H 24 106/76 09/16/18 14:00 107 H 107 H 30 H 127/73 09/16/18 13:51 107 H 22 106/76 09/16/18 13:41 106 H 25 H 114/70 09/16/18 13:30 106 H 15 111/69 09/16/18 13:21 106 H 18 115/66 09/16/18 13:11 106 H 23 129/73 09/16/18 13:00 107 H 30 H 114/70 09/16/18 12:51 106 H 25 H 129/73 09/16/18 12:41 103 H 16 124/75 09/16/18 12:30 107 H 26 H 124/75 09/16/18 12:21 107 H 14 128/86 09/16/18 12:11 106 H 16 91/55 09/16/18 12:01 107 H 21 114/65 09/16/18 12:00 98.7 F 09/16/18 11:51 106 H 18 91/55 09/16/18 11:41 109 H 16 84/56 09/16/18 11:30 107 H 17 84/56 07/07/19 11:21 105 H 18 97/61 09/16/18 11:11 106 H 24 113/70 09/16/18 11:00 110 H 21 97/63 09/16/18 10:51 109 H 34 H 113/70 09/16/18 10:41 110 H 15 106/64 09/16/18 10:30 108 H 19 99/61 Pulse Ox 09/17/18 09:00 96 09/17/18 08:30 94 09/17/18 08:00 95 09/17/18 07:30 95 09/17/18 07:20 97 09/17/18 07:10 96 09/17/18 07:00 09/17/18 06:50 97 09/17/18 06:40 96 09/17/18 06:30 09/17/18 06:20 96 09/17/18 06:10 96 09/17/18 06:00 09/17/18 05:50 97 09/17/18 05:40 97 09/17/18 05:30 95 09/17/18 05:20 97 09/17/18 05:10 97 09/17/18 05:00 94 09/17/18 04:50 96 09/17/18 04:40 97 09/17/18 04:30 94 09/17/18 04:20 96 09/17/18 04:10 96 09/17/18 04:00 96 09/17/18 03:50 96 09/17/18 03:48 09/17/18 03:40 96 09/17/18 03:30 96 09/17/18 03:20 96 09/17/18 03:10 96 09/17/18 03:00 97 09/17/18 02:50 98 09/17/18 02:40 97 09/17/18 02:30 97 09/17/18 02:20 98 09/17/18 02:10 97 09/17/18 02:00 98 09/17/18 01:50 97 09/17/18 01:40 98 09/17/18 01:39 09/17/18 01:30 97 09/17/18 01:20 97 09/17/18 01:10 97 09/17/18 01:09 09/17/18 01:00 97 09/17/18 00:50 97 09/17/18 00:40 97 09/17/18 00:30 99 09/17/18 00:20 99 09/17/18 00:10 100 09/17/18 00:00 100 09/16/18 23:50 100 09/16/18 23:40 99 09/16/18 23:30 98 09/16/18 23:20 99 09/16/18 23:10 98 09/16/18 23:00 98 09/16/18 22:50 99 09/16/18 22:40 99 09/16/18 22:30 99 09/16/18 22:20 100 09/16/18 22:10 100 09/16/18 22:02 99 09/16/18 22:00 100 09/16/18 21:50 99 09/16/18 21:40 99 09/16/18 21:30 99 09/16/18 21:20 98 09/16/18 21:10 99 09/16/18 21:00 98 09/16/18 20:50 99 09/16/18 20:40 99 09/16/18 20:30 98 09/16/18 20:21 99 09/16/18 20:11 99 09/16/18 20:00 98 09/16/18 19:52 97 09/16/18 19:51 98 09/16/18 19:41 98 09/16/18 19:30 97 09/16/18 19:21 97 09/16/18 19:11 97 09/16/18 19:00 98 09/16/18 18:51 98 09/16/18 18:41 96 09/16/18 18:30 96 09/16/18 18:21 96 09/16/18 18:10 94 09/16/18 18:01 93 09/16/18 18:00 93 09/16/18 17:50 98 09/16/18 17:41 97 09/16/18 17:30 96 09/16/18 17:21 95 09/16/18 17:11 97 09/16/18 17:00 97 09/16/18 16:51 97 09/16/18 16:41 96 09/16/18 16:30 97 09/16/18 16:21 96 09/16/18 16:11 97 09/16/18 16:00 97 09/16/18 15:51 97 09/16/18 15:41 95 09/16/18 15:30 96 09/16/18 15:21 98 09/16/18 15:10 97 09/16/18 15:00 97 09/16/18 14:51 96 09/16/18 14:41 96 09/16/18 14:30 97 09/16/18 14:21 97 09/16/18 14:11 97 09/16/18 14:00 98 09/16/18 13:51 99 09/16/18 13:41 98 09/16/18 13:30 98 09/16/18 13:21 98 09/16/18 13:11 96 09/16/18 13:00 97 09/16/18 12:51 97 09/16/18 12:41 97 09/16/18 12:30 97 09/16/18 12:21 96 09/16/18 12:11 96 09/16/18 12:01 96 09/16/18 12:00 09/16/18 11:51 97 09/16/18 11:41 97 09/16/18 11:30 97 09/16/18 11:21 98 09/16/18 11:11 96 09/16/18 11:00 96 09/16/18 10:51 96 09/16/18 10:41 97 09/16/18 10:30 95 - Physical Examination General: No Apparent Distress HEENT: Positive: PERRL Neck: Positive: neck supple Cardiac: Positive: Reg Rate and Rhythm Lungs: Positive: Decreased Breath Sounds Extremities: Absent: edema - Labs and Meds CBC 09/17/18 Range/Units 03:24 WBC 7.9 (4.5-11.0) K/mm3 RBC 4.18 (3.65-5.03) M/mm3 Hgb 12.4 (10.1-14.3) gm/dl Hct 37.5 (30.3-42.9) % Plt Count 47 L (140-440) K/mm3 Comprehensive Metabolic Panel 09/17/18 Range/Units 03:24 Sodium 146 H (137-145) mmol/L Potassium 3.1 L (3.6-5.0) mmol/L Chloride 115.1 H (98-107) mmol/L Carbon Dioxide 16 L (22-30) mmol/L BUN 26 H (7-17) mg/dL Creatinine 1.1 (0.7-1.2) mg/dL Glucose 260 H (65-100) mg/dL Calcium 9.9 (8.4-10.2) mg/dL
--- NOTE | 2018-09-17 10:53 | Progress Note ---
Assessment and Plan Cultures: Blood culture 09/15/2018: Proteus. Assessment: 1) Severe sepsis with initial septic shock: Present on admission, manifested by hypotension, tachycardia, bandemia, increased lactate requiring pressors, currently off levophed. Etiology most likely Proteus bacteremia from UTI. 2) Proteus bacteremia from UTI: Blood culture 09/15/2018 Proteus 4 of 4 bottles. 3) Acute encephalopathy: better 4) Thrombocytopenia: from sepsis 5) V-tach. 6) CONSTANZA: improved. Renal US Recommendations: - discontinued Cefepime and Levofloxacin - started IV Ceftriaxone 2 gm q24 hours - renal US ordered - repeat blood cultures ordered Carrillo Willams MD, FACP [facility] C: [phone] O: [phone] F: [phone] Subjective Date of service: 09/17/18 Interval history: Still febrile. Awake. Denies any complaints. Objective - Exam Narrative Exam: Physical Exam: Constitutional: Alert. No acute distress Head, Ears, Nose: Normocephalic, atraumatic. External ears, nose normal Eyes: Conjunctivae/corneas clear. No icterus. No ptosis. Neck: Supple, no meningeal signs Cardiovascular: S1, S2 normal. Respiratory: Good air entry, clear to auscultation bilaterally GI: Soft, non-tender; bowel sounds normal. No peritoneal signs Musculoskeletal: No pedal edema, no cyanosis. Skin: No rash or abscess Hem/Lymphatic: No palpable cervical or supraclavicular nodes. No lymphangitis Psych: no agitation Neurological: Awake, alert. - Constitutional Vitals: Vital Signs Temp Pulse Resp BP Pulse Ox 103.0 F H 128 H 22 100/60 96 09/17/18 08:00 09/17/18 09:00 09/17/18 09:00 09/17/18 09:00 09/17/18 09:00 Temperature -Last 24 Hours Temperature 103.0 F Temperature 102.3 F Temperature 98.9 F Temperature 98.9 F Temperature 99.7 F Temperature 98.7 F - Labs CBC & Chem 7: 09/17/18 03:24 09/17/18 03:24 Labs: Abnormal lab results 09/16/18 09/16/18 09/16/18 Range/Units 12:54 14:28 17:28 RDW (13.2-15.2) % Plt Count (140-440) K/mm3 Sodium (137-145) mmol/L Potassium (3.6-5.0) mmol/L Chloride (98-107) mmol/L Carbon Dioxide (22-30) mmol/L BUN (7-17) mg/dL Glucose (65-100) mg/dL POC Glucose 395 H 360 H 298 H (70-105) 09/16/18 09/16/18 09/17/18 Range/Units 22:02 22:47 02:47 RDW (13.2-15.2) % Plt Count (140-440) K/mm3 Sodium (137-145) mmol/L Potassium (3.6-5.0) mmol/L Chloride (98-107) mmol/L Carbon Dioxide (22-30) mmol/L BUN (7-17) mg/dL Glucose (65-100) mg/dL POC Glucose 361 H 342 H 291 H (70-105) 09/17/18 09/17/18 09/17/18 Range/Units 03:24 03:24 05:40 RDW 17.1 H (13.2-15.2) % Plt Count 47 L (140-440) K/mm3 Sodium 146 H (137-145) mmol/L Potassium 3.1 L (3.6-5.0) mmol/L Chloride 115.1 H (98-107) mmol/L Carbon Dioxide 16 L (22-30) mmol/L BUN 26 H (7-17) mg/dL Glucose 260 H (65-100) mg/dL POC Glucose 216 H (70-105) 09/17/18 Range/Units 07:43 RDW (13.2-15.2) % Plt Count (140-440) K/mm3 Sodium (137-145) mmol/L Potassium (3.6-5.0) mmol/L Chloride (98-107) mmol/L Carbon Dioxide (22-30) mmol/L BUN (7-17) mg/dL Glucose (65-100) mg/dL POC Glucose 205 H (70-105)
[2018-09-17] MEDS ORDERED: LEVAQUIN 750MG/150ML 750 MG/150 ML BAG IV SCH (11:00)
[2018-09-17] MEDS: PROTONIX PO SCH (11:46)
[2018-09-17] MEDS: VITAMIN D3 PO SCH (11:47)
[2018-09-17] MEDS: KCL 20MEQ/100ML 20 MEQ/100 ML BAG IV SCH ×2 (12:12→13:11)
[2018-09-17] MEDS: ROCEPHIN/NS 2 GM/100 ML 2 GM/100 ML BAG IV SCH (12:13)
--- NOTE | 2018-09-17 12:24 | Progress Note ---
Assessment and Plan Imp: 1. UTI 2. Severe sepsis with shock 3. Bacteremia 2/2 above 4. Volume depletion 5. CONSTANZA 2/2 above, better 6. Lactic acidosis 2/2 above 7. Thrombocytopenia 2/2 #'s 1-3 8. Acute respiratory failure, hypoxia 9. Mild hypernatremia Rec: 1. On Rocephin versus Proteus per ID; f/u surveillance cultures and renal US; Briggs out 2. Off Levophed but borderline BPs; in light of increasing sodium would change IVFs to 1/2 NS and increase the rate to 75mL/hour 3. K repleted; repeat labs in AM including mag, phos 4. Possible dysphagia issues; await ST consult; if cannot take PO would place DHT and start free water and TFs 5. Monitor platelets; should improve with improvement in sepsis; place SCDs since not on chemical DVT PPx 6. Respiratory status overall stable; monitor on IVFs 7. Would keep in ICU next 24 hours given borderline hypotension 8. DNR/DNI noted CCT 31 minutes No family present. Plan of care reviewed w/ patient, she understands/agrees Subjective Date of service: 09/17/18 Principal diagnosis: Sepsis Interval history: Weaned off Levophed around 7pm last evening per RN. BPs have been borderline with MAPs 60-65. She is awake, alert. C/o "hand pain" but denies SOB. Poor historian. On 2L NC. Active Medications Acetaminophen (Tylenol) 650 mg PO Q4H PRN PRN Reason: Pain MILD(1-3)/Fever >100.5/WHALEN Last Admin: 09/16/18 17:45 Dose: 650 mg Documented by: Acetaminophen (Tylenol) 650 mg ME Q4H PRN PRN Reason: Pain, Mild (1-3) Last Admin: 09/17/18 08:46 Dose: 650 mg Documented by: Albuterol (Proventil) 2.5 mg IH Q4H PRN PRN Reason: Shortness Of Breath Atorvastatin Calcium (Lipitor) 20 mg PO QHS [facility] Last Admin: 09/16/18 21:39 Dose: 20 mg Documented by: Dextrose (D50w (25gm) Syringe) 50 ml IV PRN PRN PRN Reason: Hypoglycemia Norepinephrine (Levophed Drip 4 Mg/Ns 250 Ml) 4 mg in 250 mls @ 7.5 mls/hr IV TITR REJI; Protocol Last Titration: 09/16/18 12:43 Dose: 0 mcg/min, 0 mls/hr Documented by: Potassium Chloride (Kcl 20meq/100ml) 20 meq in 100 mls @ 100 mls/hr IV Q1H REJI Stop: 09/17/18 12:59 Last Admin: 09/17/18 12:12 Dose: 100 mls/hr Documented by: Ceftriaxone Sodium (Rocephin/Ns 2 Gm/100 Ml) 2 gm in 100 mls @ 200 mls/hr IV Q24HR REJI; Protocol Last Admin: 09/17/18 12:13 Dose: 200 mls/hr Documented by: Sodium Chloride (Nacl 0.45% 1000 Ml) 1,000 mls @ 75 mls/hr IV DIRECT REJI Insulin Human Lispro (Humalog) 0 unit SUB-Q Q4H [facility]; Protocol Last Admin: 09/17/18 12:11 Dose: 4 unit Documented by: Ondansetron HCl (Zofran) 4 mg IV Q8H PRN PRN Reason: Nausea And Vomiting Last Admin: 09/17/18 01:08 Dose: 4 mg Documented by: Pantoprazole Sodium (Protonix) 40 mg IV QDAY [facility] Sodium Chloride (Sodium Chloride Flush Syringe 10 Ml) 10 ml IV BID [facility] Last Admin: 09/17/18 10:02 Dose: 10 ml Documented by: Sodium Chloride (Sodium Chloride Flush Syringe 10 Ml) 10 ml IV PRN PRN PRN Reason: LINE FLUSH Objective Vital Signs - 12hr 09/17/18 09/17/18 09/17/18 00:20 00:30 00:40 Temperature Pulse Rate 108 H 123 H 130 H Pulse Rate [ From Monitor] Pulse Rate [ Left Dorsalis Pedis] Pulse Rate [ Right Dorsalis Pedis] Respiratory 24 22 25 H Rate Blood Pressure 109/64 109/64 193/95 O2 Sat by Pulse 99 99 97 Oximetry 09/17/18 09/17/18 09/17/18 00:50 01:00 01:09 Temperature Pulse Rate 139 H 149 H Pulse Rate [ From Monitor] Pulse Rate [ Left Dorsalis Pedis] Pulse Rate [ Right Dorsalis Pedis] Respiratory 22 24 25 H Rate Blood Pressure 183/92 185/104 O2 Sat by Pulse 97 97 Oximetry 09/17/18 09/17/1819 01:10 01:20 01:30 Temperature Pulse Rate 145 H 148 H 148 H Pulse Rate [ From Monitor] Pulse Rate [ Left Dorsalis Pedis] Pulse Rate [ Right Dorsalis Pedis] Respiratory 23 23 24 Rate Blood Pressure 185/104 185/104 185/104 O2 Sat by Pulse 97 97 97 Oximetry 09/17/18 09/17/18 09/17/18 01:39 01:40 01:50 Temperature Pulse Rate 145 H 144 H Pulse Rate [ From Monitor] Pulse Rate [ Left Dorsalis Pedis] Pulse Rate [ Right Dorsalis Pedis] Respiratory 24 29 H 27 H Rate Blood Pressure 185/104 185/104 O2 Sat by Pulse 98 97 Oximetry 09/17/18 09/17/18 09/17/18 02:00 02:10 02:20 Temperature Pulse Rate 151 H 152 H 150 H Pulse Rate [ From Monitor] Pulse Rate [ Left Dorsalis Pedis] Pulse Rate [ Right Dorsalis Pedis] Respiratory 28 H 28 H 29 H Rate Blood Pressure 185/104 159/85 159/85 O2 Sat by Pulse 98 97 98 Oximetry 09/17/18 09/17/18 09/17/18 02:30 02:40 02:50 Temperature Pulse Rate 151 H 146 H 145 H Pulse Rate [ From Monitor] Pulse Rate [ Left Dorsalis Pedis] Pulse Rate [ Right Dorsalis Pedis] Respiratory 28 H 30 H 29 H Rate Blood Pressure 159/85 159/85 159/85 O2 Sat by Pulse 97 97 98 Oximetry 09/17/18 09/17/18 09/17/18 03:00 03:10 03:20 Temperature Pulse Rate 144 H 147 H 143 H Pulse Rate [ 145 H From Monitor] Pulse Rate [ 145 H Left Dorsalis Pedis] Pulse Rate [ 145 H Right Dorsalis Pedis] Respiratory 28 H 27 H 28 H Rate Blood Pressure 136/67 144/73 144/73 O2 Sat by Pulse 97 96 96 Oximetry 09/17/18 09/17/18 09/17/18 03:30 03:40 03:48 Temperature 102.3 F H Pulse Rate 144 H 142 H Pulse Rate [ From Monitor] Pulse Rate [ Left Dorsalis Pedis] Pulse Rate [ Right Dorsalis Pedis] Respiratory 29 H 30 H Rate Blood Pressure 144/73 122/67 O2 Sat by Pulse 96 96 Oximetry 0709/17/18 09/17/18 03:50 04:00 04:10 Temperature Pulse Rate 143 H 144 H 143 H Pulse Rate [ From Monitor] Pulse Rate [ Left Dorsalis Pedis] Pulse Rate [ Right Dorsalis Pedis] Respiratory 26 H 29 H 27 H Rate Blood Pressure 122/67 112/65 122/67 O2 Sat by Pulse 96 96 96 Oximetry 09/17/18 09/17/18 09/17/18 04:20 04:30 04:40 Temperature Pulse Rate 143 H 139 H 141 H Pulse Rate [ From Monitor] Pulse Rate [ Left Dorsalis Pedis] Pulse Rate [ Right Dorsalis Pedis] Respiratory 27 H 28 H 28 H Rate Blood Pressure 122/67 120/64 120/64 O2 Sat by Pulse 96 94 97 Oximetry 09/17/18 09/17/18 09/17/18 04:50 05:00 05:10 Temperature Pulse Rate 140 H 140 H 138 H Pulse Rate [ From Monitor] Pulse Rate [ Left Dorsalis Pedis] Pulse Rate [ Right Dorsalis Pedis] Respiratory 27 H 22 25 H Rate Blood Pressure 120/64 103/63 103/63 O2 Sat by Pulse 96 94 97 Oximetry 09/17/18 09/17/18 09/17/18 05:20 05:30 05:40 Temperature Pulse Rate 141 H 139 H 138 H Pulse Rate [ From Monitor] Pulse Rate [ Left Dorsalis Pedis] Pulse Rate [ Right Dorsalis Pedis] Respiratory 25 H 25 H 26 H Rate Blood Pressure 103/63 104/62 104/62 O2 Sat by Pulse 97 95 97 Oximetry 09/17/18 09/17/18 09/17/18 05:50 06:00 06:10 Temperature Pulse Rate 140 H 139 H 139 H Pulse Rate [ From Monitor] Pulse Rate [ Left Dorsalis Pedis] Pulse Rate [ Right Dorsalis Pedis] Respiratory 28 H 22 29 H Rate Blood Pressure 104/62 104/60 104/60 O2 Sat by Pulse 97 96 Oximetry 09/17/18 09/17/18 09/17/18 06:20 06:30 06:40 Temperature Pulse Rate 138 H 139 H 140 H Pulse Rate [ From Monitor] Pulse Rate [ Left Dorsalis Pedis] Pulse Rate [ Right Dorsalis Pedis] Respiratory 27 H 26 H 27 H Rate Blood Pressure 104/62 104/60 104/60 O2 Sat by Pulse 96 96 Oximetry 09/17/18 09/17/18 09/17/18 06:50 07:00 07:10 Temperature Pulse Rate 139 H 138 H 139 H Pulse Rate [ From Monitor] Pulse Rate [ Left Dorsalis Pedis] Pulse Rate [ Right Dorsalis Pedis] Respiratory 26 H 29 H 27 H Rate Blood Pressure 104/60 107/60 107/60 O2 Sat by Pulse 97 96 Oximetry 09/17/18 09/17/18 09/17/18 07:20 07:30 08:00 Temperature 103.0 F H Pulse Rate 137 H 136 H 135 H Pulse Rate [ 135 H From Monitor] Pulse Rate [ Left Dorsalis Pedis] Pulse Rate [ Right Dorsalis Pedis] Respiratory 25 H 25 H 26 H Rate Blood Pressure 104/60 107/62 112/62 O2 Sat by Pulse 97 95 95 Oximetry 09/17/18 09/17/18 09/17/18 08:30 09:00 09:30 Temperature Pulse Rate 134 H 128 H 123 H Pulse Rate [ From Monitor] Pulse Rate [ Left Dorsalis Pedis] Pulse Rate [ Right Dorsalis Pedis] Respiratory 26 H 22 24 Rate Blood Pressure 113/64 100/60 95/60 O2 Sat by Pulse 94 96 96 Oximetry 09/17/18 09/17/18 09/17/18 10:00 10:30 11:00 Temperature Pulse Rate 116 H 113 H 104 H Pulse Rate [ From Monitor] Pulse Rate [ Left Dorsalis Pedis] Pulse Rate [ Right Dorsalis Pedis] Respiratory 21 21 20 Rate Blood Pressure 82/52 85/52 81/51 O2 Sat by Pulse Oximetry 09/17/18 09/17/18 11:30 11:52 Temperature 98.3 F Pulse Rate 108 H Pulse Rate [ From Monitor] Pulse Rate [ Left Dorsalis Pedis] Pulse Rate [ Right Dorsalis Pedis] Respiratory 20 Rate Blood Pressure 89/52 O2 Sat by Pulse 98 Oximetry Constitutional: other (critically ill but alert) Eyes: non-icteric ENT: oropharynx dry Neck: supple Effort: normal Ascultation: Bilateral: diminished breath sounds (anteriorly due to poor effort) Cardiovascular: other (tachy, RR; no mrg) Gastrointestinal: normoactive bowel sounds, soft, non-tender, non-distended Integumentary: other (no obvious rashes) Extremities: no cyanosis, pink and warm, edema (trace bilateral LE edema) Neurologic: normal mental status, other (awake, confused, poorly cooperative with exam) Psychiatric: mood appropriate, affect normal CBC and BMP: 09/17/18 03:24 09/17/18 03:24 ABG, PT/INR, D-dimer: PT/INR, D-dimer PT 20.9 Sec. (12.2-14.9) H 09/15/18 03:43 INR 1.85 (0.87-1.13) H 09/15/18 03:43 Abnormal lab findings: Abnormal Labs 09/15/18 09/15/18 09/15/18 03:39 03:43 03:43 WBC RDW 16.5 H Plt Count 82 L Seg Neuts % (Manual) 83.0 H Lymphocytes % (Manual) 1.0 L Seg Neutrophils # Man Lymphocytes # (Manual) 0.1 L PT INR Sodium Potassium Chloride Carbon Dioxide 19 L BUN 37 H Creatinine 1.6 H Glucose 362 H POC Glucose Lactic Acid Calcium 11.1 H Alkaline Phosphatase 176 H Albumin 2.9 L Urine WBC (Auto) > 182.0 H 09/15/18 09/15/18 09/15/18 03:43 03:43 06:01 WBC RDW Plt Count Seg Neuts % (Manual) Lymphocytes % (Manual) Seg Neutrophils # Man Lymphocytes # (Manual) PT 20.9 H INR 1.85 H Sodium Potassium Chloride Carbon Dioxide BUN Creatinine Glucose POC Glucose Lactic Acid 2.60 H* 2.30 H* Calcium Alkaline Phosphatase Albumin Urine WBC (Auto) 09/16/18 09/16/18 09/16/18 00:40 04:17 04:17 WBC 11.6 H RDW 16.5 H Plt Count 65 L Seg Neuts % (Manual) 78.0 H Lymphocytes % (Manual) 1.0 L Seg Neutrophils # Man 9.0 H Lymphocytes # (Manual) 0.1 L PT INR Sodium Potassium 3.3 L Chloride 109.7 H Carbon Dioxide 16 L BUN 31 H Creatinine 1.3 H Glucose 370 H POC Glucose 368 H Lactic Acid Calcium 10.3 H Alkaline Phosphatase Albumin Urine WBC (Auto) 09/16/18 09/16/18 09/16/18 05:28 12:54 14:28 WBC RDW Plt Count Seg Neuts % (Manual) Lymphocytes % (Manual) Seg Neutrophils # Man Lymphocytes # (Manual) PT INR Sodium Potassium Chloride Carbon Dioxide BUN Creatinine Glucose POC Glucose 373 H 395 H 360 H Lactic Acid Calcium Alkaline Phosphatase Albumin Urine WBC (Auto) 09/16/18 09/16/18 09/16/18 17:28 22:02 22:47 WBC RDW Plt Count Seg Neuts % (Manual) Lymphocytes % (Manual) Seg Neutrophils # Man Lymphocytes # (Manual) PT INR Sodium Potassium Chloride Carbon Dioxide BUN Creatinine Glucose POC Glucose 298 H 361 H 342 H Lactic Acid Calcium Alkaline Phosphatase Albumin Urine WBC (Auto) 09/17/18 09/17/18 09/17/18 02:47 03:24 03:24 WBC RDW 17.1 H Plt Count 47 L Seg Neuts % (Manual) Lymphocytes % (Manual) Seg Neutrophils # Man Lymphocytes # (Manual) PT INR Sodium 146 H Potassium 3.1 L Chloride 115.1 H Carbon Dioxide 16 L BUN 26 H Creatinine Glucose 260 H POC Glucose 291 H Lactic Acid Calcium Alkaline Phosphatase Albumin Urine WBC (Auto) 09/17/18 09/17/18 05:40 07:43 WBC RDW Plt Count Seg Neuts % (Manual) Lymphocytes % (Manual) Seg Neutrophils # Man Lymphocytes # (Manual) PT INR Sodium Potassium Chloride Carbon Dioxide BUN Creatinine Glucose POC Glucose 216 H 205 H Lactic Acid Calcium Alkaline Phosphatase Albumin Urine WBC (Auto) Chest x-ray: report reviewed, image reviewed (increased mild pulmonary edema with low lung volumes)
[2018-09-17] MEDS: NACL 0.45% 1000 ML 1,000 ML IV SCH (13:52)
[2018-09-17] MEDS: LANTUS SUB-Q SCH (16:59)
[2018-09-18] MEDS: HumaLOG SUB-Q SCH ×7 (00:30→23:32)
[2018-09-18] MEDS: NACL 0.45% 1000 ML 1,000 ML IV SCH (01:45)
[2018-09-18] MEDS: TYLENOL PO PRN (02:33)
[2018-09-18] MEDS: MORPHINE IV PRN ×2 (03:12→08:05)
[2018-09-18 05:05] LABS: Hematocrit 32.4 % (30.3-42.9); Hemoglobin 10.9 gm/dl (10.1-14.3); Mean Corpuscular HGB Conc 34 % (30-34); Mean Corpuscular Volume 88 fl (79-97); Red Cell Distribution Width 17.2 % (13.2-15.2)
[2018-09-18 05:31] LABS: BUN/Creatinine Ratio 26; Blood Urea Nitrogen 29 mg/dL (7-17); Hemolysis Index 13
[2018-09-18] MEDS: ZOFRAN IV PRN (05:42)
[2018-09-18 06:24] LABS: Platelet Count 43 K/mm3 (140-440)
--- NOTE | 2018-09-18 07:50 | Event Note ---
Date: 09/18/18 [id number]
[2018-09-18] MEDS ORDERED: MAGNESIUM SULFATE 4GM/100ML 4 GM/100 ML BAG IV ONE (09:00)
[2018-09-18] MEDS ORDERED: KPHOS 30 MMOL in NACL 0.9% 500 ML 500 ML IV ONE (09:00)
[2018-09-18] MEDS ORDERED: PROTONIX IV SCH (10:00)
[2018-09-18 10:05] LABS: Iron 57 ug/dL (37-170); Total Iron Binding Capacity 123 mcg/dL (250-450)
[2018-09-18] MEDS: ROCEPHIN/NS 2 GM/100 ML 2 GM/100 ML BAG IV SCH (10:46)
[2018-09-18] MEDS: LANTUS SUB-Q SCH (12:40)
[2018-09-18] MEDS: SODIUM CHLORIDE FLUSH SYRINGE 10 ML IV SCH ×2 (12:41→21:28)
--- NOTE | 2018-09-18 13:00 | Progress Note ---
Assessment and Plan Sepsis thought s/t UTI AMS Fever UTI Thrombocytopenia Hx of DVT on Xarelto as an outpatient but currently held due to low platelets. Diabetes Hypertension Reflex sinus tachycardia DNR status An echocardiogram this admission reports a normal left ventricular systolic function, EF 55-60%. Conservative cardiac management. Subjective Date of service: 09/18/18 Principal diagnosis: Sepsis Interval history: Patient is resting in bed comfortably. Stable sinus rhythm on telemetry. Objective Vital Signs Temp Pulse Pulse Resp BP Pulse Ox 09/18/18 12:00 92 H 103 H 22 112/73 94 09/18/18 11:00 93 H 20 106/58 95 09/18/18 10:00 78 19 94/50 98 09/18/18 09:00 95 H 12 103/55 96 09/18/18 08:00 98.3 F 82 33 H 102/60 98 09/18/18 07:30 91 H 19 103/60 98 09/18/18 07:00 90 21 112/67 97 09/18/18 06:30 91 H 15 110/66 98 09/18/18 06:00 95 H 19 113/77 96 09/18/18 05:30 83 19 96/59 97 09/18/18 05:00 88 17 100/56 97 09/18/18 04:30 87 19 83/47 99 09/18/18 04:00 94 H 86 22 101/60 96 09/18/18 03:42 22 09/18/18 03:39 98.3 F 09/18/18 03:30 93 H 26 H 101/60 94 09/18/18 03:12 19 09/18/18 03:00 92 H 19 102/57 97 09/18/18 02:33 19 09/18/18 02:30 85 18 113/64 97 09/18/18 02:00 89 16 98/61 99 09/18/18 01:30 93 H 18 102/54 99 09/18/18 01:00 88 25 H 98/61 100 09/18/18 00:30 90 18 108/72 100 09/18/18 00:00 94 H 94 H 19 104/64 98 09/17/18 23:34 99.2 F 09/17/18 23:30 89 19 96/57 100 09/17/18 23:00 91 H 22 106/67 09/17/18 22:30 90 16 96/57 100 09/17/18 22:00 93 H 16 84/53 99 09/17/18 21:30 95 H 20 106/66 100 09/17/18 21:00 86 16 103/63 100 09/17/18 20:30 85 20 94/62 99 09/17/18 20:00 98.7 F 96 H 96 H 18 106/67 99 09/17/18 19:30 92 H 18 92/55 100 09/17/18 19:19 99 09/17/18 19:06 97 H 15 89/56 100 09/17/18 19:00 96 H 16 89/56 99 09/17/18 18:30 81 16 102/60 100 09/17/18 18:00 92 H 18 114/69 98 09/17/18 17:30 87 17 105/66 09/17/18 17:00 94 H 17 96/63 100 09/17/18 16:30 90 18 104/64 09/17/18 16:00 98.0 F 85 91 H 21 109/65 100 09/17/18 15:30 87 25 H 107/64 98 09/17/18 15:00 97 H 18 92/65 99 09/17/18 14:30 99 H 22 92/65 96 09/17/18 14:00 100 H 19 100/67 97 09/17/18 13:30 99 H 16 92/60 09/17/18 13:00 98 H 20 111/68 96 - Physical Examination General: No Apparent Distress HEENT: Positive: PERRL Neck: Positive: neck supple Cardiac: Positive: Reg Rate and Rhythm Lungs: Positive: Decreased Breath Sounds Neuro: Positive: Grossly Intact Extremities: Absent: edema - Labs and Meds CBC 09/18/18 Range/Units 04:12 WBC 14.8 H (4.5-11.0) K/mm3 RBC 3.70 (3.65-5.03) M/mm3 Hgb 10.9 (10.1-14.3) gm/dl Hct 32.4 (30.3-42.9) % Plt Count 43 L (140-440) K/mm3 Comprehensive Metabolic Panel 09/18/18 Range/Units 04:12 Sodium 151 H (137-145) mmol/L Potassium 3.6 (3.6-5.0) mmol/L Chloride 120.6 H (98-107) mmol/L Carbon Dioxide 18 L (22-30) mmol/L BUN 29 H (7-17) mg/dL Creatinine 1.1 (0.7-1.2) mg/dL Glucose 149 H (65-100) mg/dL Calcium 10.0 (8.4-10.2) mg/dL
--- NOTE | 2018-09-18 13:43 | Progress Note ---
Assessment and Plan Imp: 1. UTI 2. Severe sepsis with shock 3. Bacteremia 2/2 above 4. Volume depletion 5. CONSTANZA 2/2 above, better 6. Lactic acidosis 2/2 above 7. Thrombocytopenia 2/2 #'s 1-3 8. Acute respiratory failure, hypoxia 9. Mild hypernatremia Rec: 1. On Rocephin versus Proteus per ID; f/u surveillance cultures and renal US; Briggs out 2. Stop IVFs; encourage free water intake PO 3. Replete elytes 4. Diet advanced per ST 5. Monitor platelets; should improve with improvement in sepsis; place SCDs since not on chemical DVT PPx 6. DNR/DNI noted 7. Can leave ICU pulmonary-richey 8. Complex decision-making No family present. Plan of care reviewed w/ patient, she understands/agrees Subjective Date of service: 09/18/18 Principal diagnosis: Sepsis Interval history: Stable off Levophed. On RA without complaints. Active Medications Acetaminophen (Tylenol) 650 mg PO Q4H PRN PRN Reason: Pain MILD(1-3)/Fever >100.5/WHALEN Last Admin: 09/18/18 02:33 Dose: 650 mg Documented by: Acetaminophen (Tylenol) 650 mg MI Q4H PRN PRN Reason: Pain, Mild (1-3) Last Admin: 09/17/18 08:46 Dose: 650 mg Documented by: Albuterol (Proventil) 2.5 mg IH Q4H PRN PRN Reason: Shortness Of Breath Atorvastatin Calcium (Lipitor) 20 mg PO QHS REJI Last Admin: 09/17/18 23:20 Dose: 20 mg Documented by: Dextrose (D50w (25gm) Syringe) 50 ml IV PRN PRN PRN Reason: Hypoglycemia Ceftriaxone Sodium (Rocephin/Ns 2 Gm/100 Ml) 2 gm in 100 mls @ 200 mls/hr IV Q24HR REJI; Protocol Last Admin: 09/18/18 10:46 Dose: 200 mls/hr Documented by: Insulin Glargine (Lantus) 5 units SUB-Q DAILY REJI Last Admin: 09/18/18 12:40 Dose: 5 units Documented by: Insulin Human Lispro (Humalog) 0 unit SUB-Q Q4H REJI; Protocol Last Admin: 09/18/18 08:03 Dose: Not Given Documented by: Magnesium Oxide (Mag-Ox) 400 mg PO QDAY [facility] Stop: 09/22/18 10:01 Morphine Sulfate (Morphine) 2 mg IV Q3H PRN PRN Reason: Pain, Moderate (4-6) Last Admin: 09/18/18 08:05 Dose: 2 mg Documented by: Ondansetron HCl (Zofran) 4 mg IV Q8H PRN PRN Reason: Nausea And Vomiting Last Admin: 09/18/18 05:42 Dose: 4 mg Documented by: Pantoprazole Sodium (Protonix) 40 mg PO DAILY [facility] Potassium Phos/Sodium Phos (Phos-Nak) 1 each PO Q6HR [facility] Stop: 09/20/18 06:01 Sodium Chloride (Sodium Chloride Flush Syringe 10 Ml) 10 ml IV BID [facility] Last Admin: 09/18/18 12:41 Dose: 10 ml Documented by: Sodium Chloride (Sodium Chloride Flush Syringe 10 Ml) 10 ml IV PRN PRN PRN Reason: LINE FLUSH Objective Vital Signs - 12hr 09/18/18 09/18/18 09/18/18 02:00 02:30 02:33 Temperature Pulse Rate 89 85 Pulse Rate [ From Monitor] Respiratory 16 18 19 Rate Blood Pressure 98/61 113/64 O2 Sat by Pulse 99 97 Oximetry 09/18/18 09/18/18 09/18/18 03:00 03:12 03:30 Temperature Pulse Rate 92 H 93 H Pulse Rate [ From Monitor] Respiratory 19 19 26 H Rate Blood Pressure 102/57 101/60 O2 Sat by Pulse 97 94 Oximetry 09/18/18 09/18/18 09/18/18 03:39 03:42 04:00 Temperature 98.3 F Pulse Rate 94 H Pulse Rate [ 86 From Monitor] Respiratory 22 22 Rate Blood Pressure 101/60 O2 Sat by Pulse 96 Oximetry 09/18/18 09/18/18 09/18/18 04:30 05:00 05:30 Temperature Pulse Rate 87 88 83 Pulse Rate [ From Monitor] Respiratory 19 17 19 Rate Blood Pressure 83/47 100/56 96/59 O2 Sat by Pulse 99 97 97 Oximetry 09/18/18 09/18/18 09/18/18 06:00 06:30 07:00 Temperature Pulse Rate 95 H 91 H 90 Pulse Rate [ From Monitor] Respiratory 19 15 21 Rate Blood Pressure 113/77 110/66 112/67 O2 Sat by Pulse 96 98 97 Oximetry 09/18/18 09/18/18 09/18/18 07:30 08:00 09:00 Temperature 98.3 F Pulse Rate 91 H 82 95 H Pulse Rate [ From Monitor] Respiratory 19 33 H 12 Rate Blood Pressure 103/60 102/60 103/55 O2 Sat by Pulse 98 98 96 Oximetry 09/18/18 09/18/18 09/18/18 10:00 11:00 12:00 Temperature Pulse Rate 78 93 H 92 H Pulse Rate [ 103 H From Monitor] Respiratory 19 20 22 Rate Blood Pressure 94/50 106/58 112/73 O2 Sat by Pulse 98 95 94 Oximetry Constitutional: no acute distress, alert Eyes: non-icteric ENT: oropharynx moist Neck: supple Effort: normal Ascultation: Bilateral: clear Cardiovascular: regular rate and rhythm (no mrg) Gastrointestinal: normoactive bowel sounds, soft, non-tender, non-distended Integumentary: other (no obvious rashes) Extremities: no cyanosis, pink and warm, edema (trace bilateral LE edema) Neurologic: normal mental status, non-focal exam Psychiatric: mood appropriate, affect normal CBC and BMP: 09/18/18 04:12 09/18/18 04:12 ABG, PT/INR, D-dimer: PT/INR, D-dimer PT 20.9 Sec. (12.2-14.9) H 09/15/18 03:43 INR 1.85 (0.87-1.13) H 09/15/18 03:43 Abnormal lab findings: Abnormal Labs 09/15/18 09/15/18 09/15/18 03:39 03:43 03:43 WBC RDW 16.5 H Plt Count 82 L Seg Neuts % (Manual) 83.0 H Lymphocytes % (Manual) 1.0 L Seg Neutrophils # Man Lymphocytes # (Manual) 0.1 L PT INR Sodium Potassium Chloride Carbon Dioxide 19 L BUN 37 H Creatinine 1.6 H Glucose 362 H POC Glucose Lactic Acid Calcium 11.1 H Phosphorus Magnesium TIBC Ferritin Alkaline Phosphatase 176 H Albumin 2.9 L Vitamin B12 Urine WBC (Auto) > 182.0 H 09/15/18 09/15/18 09/15/18 03:43 03:43 06:01 WBC RDW Plt Count Seg Neuts % (Manual) Lymphocytes % (Manual) Seg Neutrophils # Man Lymphocytes # (Manual) PT 20.9 H INR 1.85 H Sodium Potassium Chloride Carbon Dioxide BUN Creatinine Glucose POC Glucose Lactic Acid 2.60 H* 2.30 H* Calcium Phosphorus Magnesium TIBC Ferritin Alkaline Phosphatase Albumin Vitamin B12 Urine WBC (Auto) 09/16/18 09/16/18 09/16/18 00:40 04:17 04:17 WBC 11.6 H RDW 16.5 H Plt Count 65 L Seg Neuts % (Manual) 78.0 H Lymphocytes % (Manual) 1.0 L Seg Neutrophils # Man 9.0 H Lymphocytes # (Manual) 0.1 L PT INR Sodium Potassium 3.3 L Chloride 109.7 H Carbon Dioxide 16 L BUN 31 H Creatinine 1.3 H Glucose 370 H POC Glucose 368 H Lactic Acid Calcium 10.3 H Phosphorus Magnesium TIBC Ferritin Alkaline Phosphatase Albumin Vitamin B12 Urine WBC (Auto) 09/16/18 09/16/18 09/16/18 05:28 12:54 14:28 WBC RDW Plt Count Seg Neuts % (Manual) Lymphocytes % (Manual) Seg Neutrophils # Man Lymphocytes # (Manual) PT INR Sodium Potassium Chloride Carbon Dioxide BUN Creatinine Glucose POC Glucose 373 H 395 H 360 H Lactic Acid Calcium Phosphorus Magnesium TIBC Ferritin Alkaline Phosphatase Albumin Vitamin B12 Urine WBC (Auto) 09/16/18 09/16/18 09/16/18 17:28 22:02 22:47 WBC RDW Plt Count Seg Neuts % (Manual) Lymphocytes % (Manual) Seg Neutrophils # Man Lymphocytes # (Manual) PT INR Sodium Potassium Chloride Carbon Dioxide BUN Creatinine Glucose POC Glucose 298 H 361 H 342 H Lactic Acid Calcium Phosphorus Magnesium TIBC Ferritin Alkaline Phosphatase Albumin Vitamin B12 Urine WBC (Auto) 09/17/18 09/17/18 09/17/18 02:47 03:24 03:24 WBC RDW 17.1 H Plt Count 47 L Seg Neuts % (Manual) Lymphocytes % (Manual) Seg Neutrophils # Man Lymphocytes # (Manual) PT INR Sodium 146 H Potassium 3.1 L Chloride 115.1 H Carbon Dioxide 16 L BUN 26 H Creatinine Glucose 260 H POC Glucose 291 H Lactic Acid Calcium Phosphorus Magnesium TIBC Ferritin Alkaline Phosphatase Albumin Vitamin B12 Urine WBC (Auto) 09/17/18 09/17/18 09/17/18 05:40 07:43 11:11 WBC RDW Plt Count Seg Neuts % (Manual) Lymphocytes % (Manual) Seg Neutrophils # Man Lymphocytes # (Manual) PT INR Sodium Potassium Chloride Carbon Dioxide BUN Creatinine Glucose POC Glucose 216 H 205 H 222 H Lactic Acid Calcium Phosphorus Magnesium TIBC Ferritin Alkaline Phosphatase Albumin Vitamin B12 Urine WBC (Auto) 09/17/18 09/17/18 09/17/18 16:15 20:33 23:21 WBC RDW Plt Count Seg Neuts % (Manual) Lymphocytes % (Manual) Seg Neutrophils # Man Lymphocytes # (Manual) PT INR Sodium Potassium Chloride Carbon Dioxide BUN Creatinine Glucose POC Glucose 236 H 157 H 143 H Lactic Acid Calcium Phosphorus Magnesium TIBC Ferritin Alkaline Phosphatase Albumin Vitamin B12 Urine WBC (Auto) 09/18/18 09/18/18 09/18/18 04:12 04:12 04:44 WBC 14.8 H RDW 17.2 H Plt Count 43 L Seg Neuts % (Manual) Lymphocytes % (Manual) Seg Neutrophils # Man Lymphocytes # (Manual) PT INR Sodium 151 H Potassium Chloride 120.6 H Carbon Dioxide 18 L BUN 29 H Creatinine Glucose 149 H POC Glucose 157 H Lactic Acid Calcium Phosphorus 1.00 L Magnesium 1.60 L TIBC Ferritin Alkaline Phosphatase Albumin Vitamin B12 Urine WBC (Auto) 09/18/18 09/18/18 09/18/18 08:05 08:47 08:47 WBC RDW Plt Count Seg Neuts % (Manual) Lymphocytes % (Manual) Seg Neutrophils # Man Lymphocytes # (Manual) PT INR Sodium Potassium Chloride Carbon Dioxide BUN Creatinine Glucose POC Glucose 143 H Lactic Acid Calcium Phosphorus Magnesium TIBC 123 L Ferritin 651.0 H Alkaline Phosphatase Albumin Vitamin B12 Urine WBC (Auto) 09/18/18 09/18/18 08:47 12:17 WBC RDW Plt Count Seg Neuts % (Manual) Lymphocytes % (Manual) Seg Neutrophils # Man Lymphocytes # (Manual) PT INR Sodium Potassium Chloride Carbon Dioxide BUN Creatinine Glucose POC Glucose 180 H Lactic Acid Calcium Phosphorus Magnesium TIBC Ferritin Alkaline Phosphatase Albumin Vitamin B12 966.7 H Urine WBC (Auto) Chest x-ray: report reviewed, image reviewed
--- NOTE | 2018-09-18 14:48 | Progress Note ---
Assessment and Plan Cultures: Blood culture 09/15/2018: Proteus 09/17/2018 Blood culture: negative at 24 hrs Assessment: 1) Severe sepsis with initial septic shock: Present on admission, manifested by hypotension, tachycardia, bandemia, increased lactate requiring pressors, currently off levophed. Etiology most likely Proteus bacteremia from UTI. 2) Proteus bacteremia from UTI: Blood culture 09/15/2018 Proteus 4 of 4 bottles. 3) Acute encephalopathy: better 4) Thrombocytopenia: from sepsis. 5) CONSTANZA: improved. Renal US still pending. Recommendations: - continue IV Ceftriaxone 2 gm q24 hours - f/u renal US ordered - f/u repeat blood cultures - monitor CBC Carrillo Willams MD, FACP [facility] C: [phone] O: [phone] F: [phone] Subjective Date of service: 09/18/18 Principal diagnosis: Sepsis Interval history: No fever. Denies any complaints. Denies any abdominal pain, nause or vomiting. Denies cough or shortness of breath. Objective - Exam Narrative Exam: Physical Exam: Constitutional: Alert. No acute distress Head, Ears, Nose: Normocephalic, atraumatic. External ears, nose normal Eyes: Conjunctivae/corneas clear. No icterus. No ptosis. Neck: Supple, no meningeal signs Cardiovascular: S1, S2 normal. Respiratory: Good air entry, clear to auscultation bilaterally GI: Soft, non-tender; bowel sounds normal. No peritoneal signs Musculoskeletal: No pedal edema, no cyanosis. Skin: No rash or abscess Hem/Lymphatic: No palpable cervical or supraclavicular nodes. No lymphangitis Psych: calm, Neurological: Awake, alert, slow to respond but answers appropriately - Constitutional Vitals: Vital Signs Temp Pulse Resp BP Pulse Ox 98.3 F 103 H 22 112/73 95 09/18/18 08:00 09/18/18 12:00 09/18/18 12:00 09/18/18 12:00 09/18/18 12:00 Temperature -Last 24 Hours Temperature 98.3 F Temperature 98.3 F Temperature 99.2 F Temperature 98.7 F Temperature 98.0 F - Labs CBC & Chem 7: 09/18/18 04:12 09/18/18 04:12 Labs: Abnormal lab results 09/17/18 09/17/18 09/17/18 Range/Units 11:11 16:15 20:33 WBC (4.5-11.0) K/mm3 RDW (13.2-15.2) % Plt Count (140-440) K/mm3 Sodium (137-145) mmol/L Chloride (98-107) mmol/L Carbon Dioxide (22-30) mmol/L BUN (7-17) mg/dL Glucose (65-100) mg/dL POC Glucose 222 H 236 H 157 H (70-105) Phosphorus (2.5-4.5) mg/dL Magnesium (1.7-2.3) mg/dL TIBC (250-450) mcg/dL Ferritin (13.0-400.0) ng/mL Vitamin B12 (211-911) pg/mL 09/17/18 09/18/18 09/18/18 Range/Units 23:21 04:12 04:12 WBC 14.8 H (4.5-11.0) K/mm3 RDW 17.2 H (13.2-15.2) % Plt Count 43 L (140-440) K/mm3 Sodium 151 H (137-145) mmol/L Chloride 120.6 H (98-107) mmol/L Carbon Dioxide 18 L (22-30) mmol/L BUN 29 H (7-17) mg/dL Glucose 149 H (65-100) mg/dL POC Glucose 143 H (70-105) Phosphorus 1.00 L (2.5-4.5) mg/dL Magnesium 1.60 L (1.7-2.3) mg/dL TIBC (250-450) mcg/dL Ferritin (13.0-400.0) ng/mL Vitamin B12 (211-911) pg/mL 09/18/18 09/18/18 09/18/18 Range/Units 04:44 08:05 08:47 WBC (4.5-11.0) K/mm3 RDW (13.2-15.2) % Plt Count (140-440) K/mm3 Sodium (137-145) mmol/L Chloride (98-107) mmol/L Carbon Dioxide (22-30) mmol/L BUN (7-17) mg/dL Glucose (65-100) mg/dL POC Glucose 157 H 143 H (70-105) Phosphorus (2.5-4.5) mg/dL Magnesium (1.7-2.3) mg/dL TIBC 123 L (250-450) mcg/dL Ferritin (13.0-400.0) ng/mL Vitamin B12 (211-911) pg/mL 09/18/18 09/18/18 09/18/18 Range/Units 08:47 08:47 12:17 WBC (4.5-11.0) K/mm3 RDW (13.2-15.2) % Plt Count (140-440) K/mm3 Sodium (137-145) mmol/L Chloride (98-107) mmol/L Carbon Dioxide (22-30) mmol/L BUN (7-17) mg/dL Glucose (65-100) mg/dL POC Glucose 180 H (70-105) Phosphorus (2.5-4.5) mg/dL Magnesium (1.7-2.3) mg/dL TIBC (250-450) mcg/dL Ferritin 651.0 H (13.0-400.0) ng/mL Vitamin B12 966.7 H (211-911) pg/mL
--- NOTE | 2018-09-18 16:40 | Progress Note ---
Assessment and Plan Assessment and plan: Patient is a 67 yo woman from [facility] (this if patient first visit in our EMR) with a history of (per chart) UTI, DVT, DM type 2 and hypertension (patient is unable to give any additional history) who presented to [facility] ED with ANNA, fevers and AMS. Advance directives paperwork from [facility] shows that patient is DNR and No Hospitalizations but patient changed her mind and wanted to be hospitalize but she does not want to be resuscitated. In the emergency room, she was found to be in V. tach with a rate of 160s, she was given adenosine twice without resolution then given amiodarone IV which decreased HR to 120s. She was admitted to ICU on IV amidorone drip alone with Levophed vasopressor via right chin right Interosseous (IO) IV. Sepsis UTI with suspected shock, poa with Gram negative bacteremia: consulted ID, ordered Urine culture (I do not know why it wasn't send on admission), remove acosta, place Purewack, weaned off 2 mcg Levophed. Rocephin 2gm written Proteus mirablis bacteremia: added Levaquin based on sensitivities, ID is following Acute encephalopathy, resolved Vtach/ Wide complex tachycardia: wean off Amiodarone drip, consult Cardiology, input noted, ECHO done await reading. ARF, with ATN, poa now resolved Hypotension weaned off vasopressors Hypokalemia: replete and recheck Diabetes mellitus type 2: added SSI\ Stage 1 Pressure ulcer: Consult wound care h/o DVT: on Xarelto, will hold due to plt of 47 Functional quadriplegia, she denies a stroke: order PT/OT Thrombocytopenia: consulted Heme/Oncology, hold Xarelto and monitor for any bleeding DNR, verified with patient removed acosta, removes IO from right leg/mckeon on Monday Midline line placed on Monday09/16/18 weaned off Levophed with IVF NSS platelets down to 47, hold Xarelto, continue to monitor Consulted ID, input noted I Ordered urine culture but patient was already started on abx from ED and follow results Transfer to [facility] unit History Interval history: Patient seen and examined this morning awaiting speech evaluation. She reports improvement but still very lethargic. Hospitalist Physical - Physical exam Narrative exam: Gen: chronic disable, ill appearing, NAD, Awake, lethargic, Orientated x 3 HEENT: NCAT, EOMI, PERRL, OP Clear Neck: supple, no adenopathy, no thyromegaly, no JVD CVS/Heart: Regular tachycardia, normal S1S2, pulses present bilaterally Chest/Lungs: CTA B, Symmetrical chest expansion, good air entry bilaterally GI/Abdomen: soft, NTND, good bowel sounds, no guarding or rebound /Bladder: no suprapubic tenderness, no CVA or paraspinal tenderness, Extermity/Skin: atrophic bilateral legs with muscle wasting, no c/c/e, no obvious rash except for noted skin excoriations and stage I MSK: FROM x 3, right hemiparesis not Neuro: CN 2-12 grossly intact, no new focal deficits, Psych: calm - Constitutional Vitals: Temp Pulse Resp BP Pulse Ox 99 F 111 H 24 125/74 94 09/18/18 16:00 09/18/18 16:00 09/18/18 16:00 09/18/18 16:00 09/18/18 16:00 General appearance: Present: no acute distress, obese Results - Labs CBC & Chem 7: 09/19/18 04:03 09/19/18 04:03 Labs: Laboratory Last Values WBC 14.8 K/mm3 (4.5-11.0) H 09/18/18 04:12 RBC 3.70 M/mm3 (3.65-5.03) 09/18/18 04:12 Hgb 10.9 gm/dl (10.1-14.3) 09/18/18 04:12 Hct 32.4 % (30.3-42.9) 09/18/18 04:12 MCV 88 fl (79-97) 09/18/18 04:12 MCH 29 pg (28-32) 09/18/18 04:12 MCHC 34 % (30-34) 09/18/18 04:12 RDW 17.2 % (13.2-15.2) H 09/18/18 04:12 Plt Count 43 K/mm3 (140-440) L 09/18/18 04:12 Add Manual Diff Complete 09/16/18 04:17 Total Counted 100 09/16/18 04:17 Seg Neutrophils % Sodium Chlorite Operator 09/16/18 04:17 Seg Neuts % (Manual) 78.0 % (40.0-70.0) H 09/16/18 04:17 16.0 % 09/16/18 04:17 1.0 % (13.4-35.0) L 09/16/18 04:17 Reactive Lymphs % (Man) 0 % 09/16/18 04:17 4.0 % (0.0-7.3) 09/16/18 04:17 0 % (0.0-4.3) 09/16/18 04:17 0 % (0.0-1.8) 09/16/18 04:17 0 % 09/16/18 04:17 1.0 % 09/16/18 04:17 0 % 09/16/18 04:17 0 % 09/16/18 04:17 Nucleated RBC % Not Reportable 09/16/18 04:17 Seg Neutrophils # Man 9.0 K/mm3 (1.8-7.7) H 09/16/18 04:17 Band Neutrophils # 1.9 K/mm3 09/16/18 04:17 0.1 K/mm3 (1.2-5.4) L 09/16/18 04:17 Abs React Lymphs (Man) 0.0 K/mm3 09/16/18 04:17 0.5 K/mm3 (0.0-0.8) 09/16/18 04:17 0.0 K/mm3 (0.0-0.4) 09/16/18 04:17 0.0 K/mm3 (0.0-0.1) 09/16/18 04:17 0.0 K/mm3 09/16/18 04:17 0.1 K/mm3 09/16/18 04:17 0.0 K/mm3 09/16/18 04:17 Blast Cells # 0.0 K/mm3 09/16/18 04:17 WBC Morphology Not Reportable 09/16/18 04:17 Hypersegmented Neuts Not Reportable 09/16/18 04:17 Hyposegmented Neuts Not Reportable 09/16/18 04:17 Hypogranular Neuts Not Reportable 09/16/18 04:17 Not Reportable 09/16/18 04:17 Not Reportable 09/16/18 04:17 Not Reportable 09/16/18 04:17 Not Reportable 09/16/18 04:17 Not Reportable 09/16/18 04:17 Not Reportable 09/16/18 04:17 Consistent w auto 09/16/18 04:17 Not Reportable 09/16/18 04:17 Plt Clumps, EDTA Not Reportable 09/16/18 04:17 Not Reportable 09/16/18 04:17 Not Reportable 09/16/18 04:17 Not Reportable 09/16/18 04:17 Plt Morphology Comment Not Reportable 09/16/18 04:17 RBC Morphology Normal 09/16/18 04:17 Dimorphic RBCs Not Reportable 09/16/18 04:17 Not Reportable 09/16/18 04:17 Not Reportable 09/16/18 04:17 Not Reportable 09/16/18 04:17 Not Reportable 09/16/18 04:17 Not Reportable 09/16/18 04:17 Not Reportable 09/16/18 04:17 Not Reportable 09/16/18 04:17 Not Reportable 09/16/18 04:17 Not Reportable 09/16/18 04:17 Not Reportable 09/16/18 04:17 Not Reportable 09/16/18 04:17 Not Reportable 09/16/18 04:17 Not Reportable 09/16/18 04:17 Not Reportable 09/16/18 04:17 Not Reportable 09/16/18 04:17 Not Reportable 09/16/18 04:17 Not Reportable 09/16/18 04:17 Not Reportable 09/16/18 04:17 Not Reportable 09/16/18 04:17 Acanthocytes (Spur) Not Reportable 09/16/18 04:17 Rouleaux Not Reportable 09/16/18 04:17 Not Reportable 09/16/18 04:17 Not Reportable 09/16/18 04:17 Not Reportable 09/16/18 04:17 Not Reportable 09/16/18 04:17 Hem Pathologist Commnt No 09/16/18 04:17 PT 20.9 Sec. (12.2-14.9) H 09/15/18 03:43 INR 1.85 (0.87-1.13) H 09/15/18 03:43 APTT 27.8 Sec. (24.2-36.6) 09/15/18 03:43 Sodium 151 mmol/L (137-145) H 09/18/18 04:12 Potassium 3.6 mmol/L (3.6-5.0) 09/18/18 04:12 Chloride 120.6 mmol/L (98-107) H 09/18/18 04:12 Carbon Dioxide 18 mmol/L (22-30) L 09/18/18 04:12 16 mmol/L 09/18/18 04:12 BUN 29 mg/dL (7-17) H 09/18/18 04:12 1.1 mg/dL (0.7-1.2) 09/18/18 04:12 Estimated GFR > 60 ml/min 09/18/18 04:12 26 % 09/18/18 04:12 Glucose 149 mg/dL (65-100) H 09/18/18 04:12 POC Glucose 180 (70-105) H 09/18/18 12:17 Lactic Acid 1.80 mmol/L (0.7-2.0) 09/15/18 07:02 Calcium 10.0 mg/dL (8.4-10.2) 09/18/18 04:12 Phosphorus 1.00 mg/dL (2.5-4.5) L 09/18/18 04:12 Magnesium 1.60 mg/dL (1.7-2.3) L 09/18/18 04:12 Iron 57 ug/dL (37-170) 09/18/18 08:47 TIBC 123 mcg/dL (250-450) L 09/18/18 08:47 651.0 ng/mL (13.0-400.0) H 09/18/18 08:47 1.00 mg/dL (0.1-1.2) 09/15/18 03:43 AST 25 units/L (5-40) 09/15/18 03:43 ALT 24 units/L (7-56) 09/15/18 03:43 176 units/L (35-129) H 09/15/18 03:43 65 units/L (30-135) 09/15/18 11:29 CK-MB (CK-2) 1.8 ng/mL (0.0-4.0) 09/15/18 11:29 CK-MB (CK-2) Rel Index 2.7 (0-4) 09/15/18 11:29 < 0.010 ng/mL (0.00-0.029) 09/15/18 11:29 7.6 g/dL (6.3-8.2) 09/15/18 03:43 2.9 g/dL (3.9-5) L 09/15/18 03:43 0.6 % 09/15/18 03:43 Vitamin B12 966.7 pg/mL (211-911) H 09/18/18 08:47 12.78 ng/mL (7.3-26.0) 09/18/18 08:47 Yellow (Yellow) 09/15/18 03:39 Cloudy (Clear) 09/15/18 03:39 6.0 (5.0-7.0) 09/15/18 03:39 Ur Specific [place] 1.014 (1.003-1.030) 09/15/18 03:39 100 mg/dl mg/dL (Negative) 09/15/18 03:39 >=500 mg/dL (Negative) 09/15/18 03:39 Tr mg/dL (Negative) 09/15/18 03:39 Mod (Negative) 09/15/18 03:39 Neg (Negative) 09/15/18 03:39 Neg (Negative) 09/15/18 03:39 < 2.0 mg/dL (<2.0) 09/15/18 03:39 Ur Leukocyte Esterase Lg (Negative) 09/15/18 03:39 > 182.0 /HPF (0.0-6.0) H 09/15/18 03:39 5.0 /HPF (0.0-6.0) 09/15/18 03:39 1+ /HPF (Negative) 09/15/18 03:39 Few /HPF 09/15/18 03:39 Few /HPF 09/15/18 03:39 Active Medications - Current Medications Current Medications: Generic Name Dose Route Start Last Admin Trade Name Freq PRN Reason Stop Dose Admin Acetaminophen 650 mg 09/15/18 05:41 09/18/18 02:33 Tylenol PO 650 mg Q4H PRN Administration Pain MILD(1-3)/Fever >100.5/WHALEN Acetaminophen 650 mg 09/15/18 08:49 09/17/18 08:46 Tylenol DE 650 mg Q4H PRN Administration Pain, Mild (1-3) Albuterol 2.5 mg 09/16/18 18:11 Proventil IH Q4H PRN Shortness Of Breath Atorvastatin Calcium 20 mg 09/15/18 22:00 09/17/18 23:20 Lipitor PO 20 mg QHS REJI Administration Dextrose 50 ml 09/16/18 14:08 D50w (25gm) Syringe IV PRN PRN Hypoglycemia Ceftriaxone Sodium 2 gm in 100 mls @ 200 mls/hr 09/17/18 12:00 09/18/18 10:46 Rocephin/Ns 2 Gm/100 Ml IV 200 mls/hr Q24HR REJI Administration Protocol Insulin Glargine 5 units 09/17/18 15:00 09/18/18 12:40 Lantus SUB-Q 5 units DAILY REJI Administration Insulin Human Lispro 0 unit 09/16/18 15:00 09/18/18 15:47 Humalog SUB-Q 3 unit Q4H REJI Administration Protocol Magnesium Oxide 400 mg 09/19/18 10:00 Mag-Ox PO 09/22/18 10:01 QDAY REJI Morphine Sulfate 2 mg 09/18/18 02:53 09/18/18 08:05 Morphine IV 2 mg Q3H PRN Administration Pain, Moderate (4-6) Ondansetron HCl 4 mg 09/15/18 05:41 09/18/18 05:42 Zofran IV 4 mg Q8H PRN Administration Nausea And Vomiting Pantoprazole Sodium 40 mg 09/19/18 10:00 Protonix PO DAILY REJI Potassium Phos/Sodium Phos 1 each 09/18/18 12:00 Phos-Nak PO 09/20/18 06:01 Q6HR REJI Sodium Chloride 10 ml 09/15/18 10:00 09/18/18 12:41 Sodium Chloride Flush Syringe 10 Ml IV 10 ml BID REJI Administration Sodium Chloride 10 ml 09/15/18 05:41 Sodium Chloride Flush Syringe 10 Ml IV PRN PRN LINE FLUSH
[2018-09-18] MEDS: PHOS-NAK PO SCH ×3 (17:13→23:32)
--- NOTE | 2018-09-18 22:39 | Ultrasound Report ---
ULTRASOUND RENAL INDICATION: Sepsis, UTI, CONSTANZA. COMPARISON: No relevant prior imaging study available. FINDINGS: RIGHT KIDNEY: Size: 9.2 cm. Echogenicity: Normal. Cortical thickness: Normal. Stones: None. Hydronephrosis: None. Cyst or mass: Within the lower pole of the right kidney, is a 1.9 cm round hypoechoic focus. LEFT KIDNEY: Size: 8.2 cm. Echogenicity: Normal. Cortical thickness: Normal. Stones: None. Hydronephrosis: None. Cyst or mass: None. Urinary Bladder: No significant abnormality. Free Fluid: None. Additional Findings: None. IMPRESSION 1. Exam is limited due to patient body habitus and inability to move. 2. 1.9 cm hypoechoic focus lower pole right kidney. This could be a cyst. Caliectasis could have this appearance. 3. Left kidney is unremarkable. Signer Name: Jose Quigley MD Signed: 09/18/2018 10:34 PM Workstation Name: [id number]
[2018-09-19] MEDS: HumaLOG SUB-Q SCH ×2 (03:27→07:58)
[2018-09-19 04:33] LABS: Hematocrit 32.6 % (30.3-42.9); Hemoglobin 11.1 gm/dl (10.1-14.3); Mean Corpuscular HGB Conc 34 % (30-34); Mean Corpuscular Volume 87 fl (79-97); Red Blood Count 3.76 M/mm3 (3.65-5.03); Red Cell Distribution Width 17.3 % (13.2-15.2)
[2018-09-19 04:45] LABS: Platelet Count 42 K/mm3 (140-440)
[2018-09-19 04:54] LABS: BUN/Creatinine Ratio 25; Blood Urea Nitrogen 27 mg/dL (7-17); Calcium 10.4 mg/dL (8.4-10.2); Hemolysis Index 4
[2018-09-19] MEDS: PHOS-NAK PO SCH (05:17)
--- NOTE | 2018-09-19 08:39 | Progress Note ---
<ARTUR HENDRIX - Last Filed: 09/19/18 08:36> Assessment and Plan Sepsis thought s/t UTI AMS Fever UTI Thrombocytopenia Hx of DVT on Xarelto as an outpatient but currently held due to low platelets. Diabetes Hypertension Reflex sinus tachycardia DNR status An echocardiogram this admission reports a normal left ventricular systolic function, EF 55-60%. Conservative cardiac management. Subjective Date of service: 09/19/18 Principal diagnosis: Sepsis Interval history: Patient is resting in bed comfortably. She denies chest pain and shortness of breath. Objective Vital Signs Temp Pulse Pulse Resp BP Pulse Ox 09/19/18 07:20 100.0 F H 116 H 20 142/82 91 09/19/18 06:11 108 H 09/19/18 02:15 98.7 F 122 H 18 117/66 93 09/18/18 22:00 62 18 94 09/18/18 20:59 94 09/18/18 19:37 97.4 F L 62 18 152/69 94 09/18/18 17:14 98.5 F 105 H 20 118/65 94 09/18/18 16:50 116/65 98 09/18/18 16:40 124/69 96 09/18/18 16:30 109 H 25 H 124/69 96 09/18/18 16:20 108 H 25 H 116/65 95 09/18/18 16:10 107 H 20 116/65 95 09/18/18 16:00 99 F 111 H 24 125/74 94 09/18/18 14:00 106 H 19 136/76 97 09/18/18 12:00 98 F 92 H 103 H 22 112/73 94 09/18/18 11:00 93 H 20 106/58 95 09/18/18 10:00 78 19 94/50 98 09/18/18 09:00 95 H 12 103/55 96 - Physical Examination General: No Apparent Distress HEENT: Positive: PERRL Neck: Positive: neck supple Cardiac: Positive: Reg Rate and Rhythm Lungs: Positive: Decreased Breath Sounds Neuro: Positive: Grossly Intact Extremities: Absent: edema - Labs and Meds CBC 09/19/18 Range/Units 04:03 WBC 10.8 (4.5-11.0) K/mm3 RBC 3.76 (3.65-5.03) M/mm3 Hgb 11.1 (10.1-14.3) gm/dl Hct 32.6 (30.3-42.9) % Plt Count 42 L (140-440) K/mm3 Comprehensive Metabolic Panel 09/19/18 Range/Units 04:03 Sodium 150 H (137-145) mmol/L Potassium 3.2 L (3.6-5.0) mmol/L Chloride 120.5 H (98-107) mmol/L Carbon Dioxide 19 L (22-30) mmol/L BUN 27 H (7-17) mg/dL Creatinine 1.1 (0.7-1.2) mg/dL Glucose 189 H (65-100) mg/dL Calcium 10.4 H (8.4-10.2) mg/dL <ELA HAWKINS - Last Filed: 09/19/18 19:09> Assessment and Plan I have seen and evaluated the patient and agree with the assessment and plan. Objective Vital Signs Temp Pulse Pulse Resp BP Pulse Ox 09/19/18 13:15 99.9 F H 134 H 20 141/84 91 09/19/18 10:00 128 H 18 95 09/19/18 09:00 126 H 18 96 09/19/18 08:58 133 H 19 09/19/18 07:20 100.0 F H 116 H 20 142/82 91 09/19/18 06:11 108 H 09/19/18 02:15 98.7 F 122 H 18 117/66 93 09/18/18 22:00 62 18 94 09/18/18 20:59 94 09/18/18 19:37 97.4 F L 62 18 152/69 94 - Labs and Meds CBC 09/19/18 Range/Units 04:03 WBC 10.8 (4.5-11.0) K/mm3 RBC 3.76 (3.65-5.03) M/mm3 Hgb 11.1 (10.1-14.3) gm/dl Hct 32.6 (30.3-42.9) % Plt Count 42 L (140-440) K/mm3 Comprehensive Metabolic Panel 09/19/18 Range/Units 04:03 Sodium 150 H (137-145) mmol/L Potassium 3.2 L (3.6-5.0) mmol/L Chloride 120.5 H (98-107) mmol/L Carbon Dioxide 19 L (22-30) mmol/L BUN 27 H (7-17) mg/dL Creatinine 1.1 (0.7-1.2) mg/dL Glucose 189 H (65-100) mg/dL Calcium 10.4 H (8.4-10.2) mg/dL
--- NOTE | 2018-09-19 09:01 | Progress Note ---
Assessment and Plan Cultures: Blood culture 09/15/2018: Proteus 09/17/2018 Blood culture: negative at 24 hrs Assessment: 1) Severe sepsis with initial septic shock: Improved. Present on admission, manifested by hypotension, tachycardia, bandemia, increased lactate requiring pressors, currently off levophed. Etiology most likely Proteus bacteremia from UTI. 2) Proteus bacteremia from UTI: Blood culture 09/15/2018 Proteus 4 of 4 bottles. 3) Acute encephalopathy: better 4) Thrombocytopenia: from sepsis. 5) CONSTANZA: improved. Renal US shows 1.9 cm hypoechoic focus lower pole right kidney. This could be a cyst. Caliectasis could also have this appearance. left Kidney unremarkable. Recommendations: - Discontinue IV Ceftriaxone 2 gm q24 hours, D3 - f/u repeat blood cultures -Switch to Levofloxacin 500 mg PO for 4 days ending 09-22-18 [facility] M: [phone] O:[phone] Subjective Date of service: 09/19/18 Principal diagnosis: Sepsis Interval history: Patient seen and examined. Follows simple commands. reports no pain. Low grade fever. Objective - Exam Narrative Exam: Constitutional: Alert. No acute distress Head, Ears, Nose: Normocephalic, atraumatic. External ears, nose normal Eyes: Conjunctivae/corneas clear. No icterus. No ptosis. Neck: Supple, no meningeal signs Cardiovascular: S1, S2 normal. Respiratory: Good air entry, clear to auscultation bilaterally GI: Soft, non-tender; bowel sounds normal. No peritoneal signs Musculoskeletal: No pedal edema, no cyanosis. Skin: No rash or abscess Hem/Lymphatic: No palpable cervical or supraclavicular nodes. No lymphangitis Psych: calm, Neurological: Awake, alert, slow to respond but answers appropriately - Constitutional Vitals: Vital Signs Temp Pulse Resp BP Pulse Ox 100.0 F H 116 H 20 142/82 91 09/19/18 07:20 09/19/18 07:20 09/19/18 07:20 09/19/18 07:20 09/19/18 07:20 Temperature -Last 24 Hours Temperature 100.0 F Temperature 98.7 F Temperature 97.4 F Temperature 98.5 F Temperature 99 F Temperature 98 F - Labs CBC & Chem 7: 09/19/18 04:03 07/10/19 04:03 Labs: Abnormal lab results 09/18/18 09/18/18 09/18/18 Range/Units 08:05 08:47 08:47 RDW (13.2-15.2) % Plt Count (140-440) K/mm3 Sodium (137-145) mmol/L Potassium (3.6-5.0) mmol/L Chloride (98-107) mmol/L Carbon Dioxide (22-30) mmol/L BUN (7-17) mg/dL Glucose (65-100) mg/dL POC Glucose 143 H (70-105) Calcium (8.4-10.2) mg/dL Phosphorus (2.5-4.5) mg/dL TIBC 123 L (250-450) mcg/dL Ferritin 651.0 H (13.0-400.0) ng/mL Vitamin B12 (211-911) pg/mL 09/18/18 09/18/18 09/18/18 Range/Units 08:47 12:17 16:44 RDW (13.2-15.2) % Plt Count (140-440) K/mm3 Sodium (137-145) mmol/L Potassium (3.6-5.0) mmol/L Chloride (98-107) mmol/L Carbon Dioxide (22-30) mmol/L BUN (7-17) mg/dL Glucose (65-100) mg/dL POC Glucose 180 H 243 H (70-105) Calcium (8.4-10.2) mg/dL Phosphorus (2.5-4.5) mg/dL TIBC (250-450) mcg/dL Ferritin (13.0-400.0) ng/mL Vitamin B12 966.7 H (211-911) pg/mL 09/18/18 09/18/18 09/19/18 Range/Units 18:20 23:02 03:13 RDW (13.2-15.2) % Plt Count (140-440) K/mm3 Sodium (137-145) mmol/L Potassium (3.6-5.0) mmol/L Chloride (98-107) mmol/L Carbon Dioxide (22-30) mmol/L BUN (7-17) mg/dL Glucose (65-100) mg/dL POC Glucose 197 H 229 H 200 H (70-105) Calcium (8.4-10.2) mg/dL Phosphorus (2.5-4.5) mg/dL TIBC (250-450) mcg/dL Ferritin (13.0-400.0) ng/mL Vitamin B12 (211-911) pg/mL 09/19/18 09/19/18 09/19/18 Range/Units 04:03 04:03 04:03 RDW 17.3 H (13.2-15.2) % Plt Count 42 L (140-440) K/mm3 Sodium 150 H (137-145) mmol/L Potassium 3.2 L (3.6-5.0) mmol/L Chloride 120.5 H (98-107) mmol/L Carbon Dioxide 19 L (22-30) mmol/L BUN 27 H (7-17) mg/dL Glucose 189 H (65-100) mg/dL POC Glucose (70-105) Calcium 10.4 H (8.4-10.2) mg/dL Phosphorus 0.90 L* (2.5-4.5) mg/dL TIBC (250-450) mcg/dL Ferritin (13.0-400.0) ng/mL Vitamin B12 (211-911) pg/mL 09/19/18 Range/Units 07:17 RDW (13.2-15.2) % Plt Count (140-440) K/mm3 Sodium (137-145) mmol/L Potassium (3.6-5.0) mmol/L Chloride (98-107) mmol/L Carbon Dioxide (22-30) mmol/L BUN (7-17) mg/dL Glucose (65-100) mg/dL POC Glucose 187 H (70-105) Calcium (8.4-10.2) mg/dL Phosphorus (2.5-4.5) mg/dL TIBC (250-450) mcg/dL Ferritin (13.0-400.0) ng/mL Vitamin B12 (211-911) pg/mL
[2018-09-19] MEDS ORDERED: PROTONIX PO SCH (10:00)
[2018-09-19] MEDS ORDERED: MAG-OX PO SCH (10:00)
[2018-09-19] MEDS ORDERED: KPHOS 45 MMOL in NACL 0.9% 500 ML 500 ML IV ONE (10:00)
[2018-09-19] MEDS: ROCEPHIN/NS 2 GM/100 ML 2 GM/100 ML BAG IV SCH (10:19)
[2018-09-19] MEDS: LANTUS SUB-Q SCH (10:28)
[2018-09-19] MEDS ORDERED: HumaLOG SUB-Q SCH (11:30)
[2018-09-19] MEDS ORDERED: LEVAQUIN PO SCH (13:00)
--- NOTE | 2018-09-19 13:03 | Discharge Summary ---
Providers - Providers Date of Admission: 09/15/18 05:41 Attending physician: SHIRIN DELGADO MD 09/15/18 05:41 Consult to Physician [CONS] Routine Comment: Consulting Provider: MARY RAINEY Physician Instructions: Reason For Exam: cc 09/15/18 05:46 Consult to Physician [CONS] Routine Comment: Consulting Provider: ALANNA GIL Physician Instructions: Reason For Exam: cc 09/16/18 14:13 Consult to Physician [CONS] Routine Comment: Consulting Provider: AVNI BURTON Physician Instructions: I notified Reason For Exam: sepsis UTI 09/16/18 14:31 Occupational Therapy Evaluate and Treat [CONS] Routine Comment: Reason For Exam: ADLs evaluation Physical Therapy Evaluation and Treat [CONS] Routine Comment: Reason For Exam: gait evaluation/ambulatory dysfunction 09/16/18 14:59 PICC Line Insertion [Consult to PICC Line RN] [CONS] Stat Reason For Exam: VASOPRESSOR Type Line:: Midline 09/17/18 10:16 Consult to Physician [CONS] Routine Comment: Consulting Provider: NELLY WILCOX Physician Instructions: Reason For Exam: thrombocytopenia 09/17/18 11:55 Speech Therapy Evaluation and Treat [CONS] Routine Reason For Exam: odynophagia 09/19/18 07:11 Consult to Wound/ET Nurse [CONS] Routine Reason For Exam: wound eval [facility] Reason for admission: sepsis Condition: Stable Hospital course: Patient is a 67 yo woman from [facility] (this if patient first visit in our EMR) with a history of (per chart) UTI, DVT, DM type 2 and hypertension (patient is unable to give any additional history) who presented to [facility] ED with ANNA, fevers and AMS. Advance directives paperwork from [facility] shows that patient is DNR and No Hospitalizations but patient changed her mind and wanted to be hospitalize but she does not want to be resuscitated. In the emergency room, she was found to be in V. tach with a rate of 160s, she was given adenosine twice without resolution then given amiodarone IV which decreased HR to 120s. She was admitted to ICU on IV amidorone drip alone with Levophed vasopressor via right chin right Interosseous (IO) IV. During the admission patient was noted to have sepsis with shock secondary to gram-negative bacteremia which that her concern grew Proteus mirabilis patient was general IV antibiotics including Rocephin and a subsequent change to Levaquin. Patient's mental status improved the patient remained very lethargic she was also noted to have wide complex tachycardia following a V. tach was initially on amiodarone drip and subsequently discontinued although patient has preserved ejection fraction she has multiple comorbid disorders related to a conservative management. After discussion with family they opted that the patient be made a DO NOT RESUSCITATE. She didn't, noted a pressure ulcer was being managed with wound care she also was noted to have Lymphocytosis for Which Hematology Was Consulted and [place] That This Is Due To the Monofilament Sepsis As Her Also Was Discontinued. Risk Was Discussed with Family. The Patient Currently Stable Although Passed a Swallow Evaluation Due To Her Lethargy Does Not Often Eat Was Recommended Transfer to Long-Term Acute Care Facility for Further Management and to Give Her the Time to Rehabilitation As Needed. Sepsis UTI with suspected shock, poa with Gram negative bacteremia Proteus mirablis bacteremia: added Levaquin to complete 4 more days till 09/23/18 Acute encephalopathy, resolved Vtach/ Wide complex tachycardia ARF, with ATN, poa Hypotension Hypokalemia Diabetes mellitus type 2 Stage 1 Pressure ulcer Hypophosphatemia protein calorie malnutrition h/o DVT: on Xarelto, will hold due to plt of 47 Functional quadriplegia, Thrombocytopenia DNR, verified with patient Disposition: [id number] MEDICARE CERT LT Time spent for discharge: 35 mins Core Measure Documentation - Palliative Care Palliative Care/ Comfort Measures: Not Applicable - Core Measures Any of the following diagnoses?: none Exam - Physical Exam Narrative exam: Gen: chronic disable, ill appearing, NAD, Awake, lethargic, Orientated x 3 HEENT: NCAT, EOMI, PERRL, OP Clear Neck: supple, no adenopathy, no thyromegaly, no JVD CVS/Heart: Regular tachycardia, normal S1S2, pulses present bilaterally Chest/Lungs: CTA B, Symmetrical chest expansion, good air entry bilaterally GI/Abdomen: soft, NTND, good bowel sounds, no guarding or rebound /Bladder: no suprapubic tenderness, no CVA or paraspinal tenderness, Extermity/Skin: atrophic bilateral legs with muscle wasting, no c/c/e, no obvious rash except for noted skin excoriations and stage I MSK: FROM x 3, right hemiparesis not Neuro: CN 2-12 grossly intact, no new focal deficits, Psych: calm - Constitutional Vitals: Temp Pulse Resp BP Pulse Ox 100.0 F H 128 H 18 142/82 95 09/19/18 07:20 09/19/18 10:00 09/19/18 10:00 09/19/18 07:20 09/19/18 10:00 Plan Activity: advance as tolerated, fall precautions Diet: low fat Special Instructions: record daily weights, record daily BP diary Follow up with: [facility] [place] MD JOS [Primary Care Provider] - 7 Days NELLY WILCOX MD [Staff Physician] - 7 Days DEN CHAVIRA MD [Staff Physician] - 7 Days
--- NOTE | 2018-09-19 13:18 | Progress Note ---
Assessment and Plan - Patient Problems (1) Dementia Current Visit: Yes Status: Acute (2) Physical deconditioning Current Visit: Yes Status: Acute (3) Sepsis Current Visit: Yes Status: Acute Qualifiers: Sepsis type: sepsis due to unspecified organism Qualified Code(s): A41.9 - Sepsis, unspecified organism (4) Urinary tract infection Current Visit: Yes Status: Acute Qualifiers: Urinary tract infection type: acute cystitis Hematuria presence: without hematuria Qualified Code(s): N30.00 - Acute cystitis without hematuria (5) Wide-complex tachycardia Current Visit: Yes Status: Acute (6) Renal insufficiency Current Visit: Yes Status: Acute Subjective Principal diagnosis: Sepsis Interval history: doing well. awake and alert Objective Vital Signs - 12hr 09/19/18 09/19/18 09/19/18 02:15 06:11 07:20 Temperature 98.7 F 100.0 F H Pulse Rate 122 H 108 H 116 H Pulse Rate [ From Monitor] Respiratory 18 20 Rate Blood Pressure 117/66 142/82 O2 Sat by Pulse 93 91 Oximetry 09/19/18 10:00 Temperature Pulse Rate Pulse Rate [ 128 H From Monitor] Respiratory 18 Rate Blood Pressure O2 Sat by Pulse 95 Oximetry Constitutional: no acute distress, alert Eyes: non-icteric ENT: oropharynx moist Neck: supple Effort: normal Ascultation: Bilateral: clear Cardiovascular: regular rate and rhythm (no mrg) Gastrointestinal: normoactive bowel sounds, soft, non-tender, non-distended Integumentary: other (no obvious rashes) Extremities: no cyanosis, pink and warm, edema (trace bilateral LE edema) Neurologic: normal mental status, non-focal exam Psychiatric: mood appropriate, affect normal CBC and BMP: 09/19/18 04:03 09/19/18 04:03 ABG, PT/INR, D-dimer: PT/INR, D-dimer PT 20.9 Sec. (12.2-14.9) H 09/15/18 03:43 INR 1.85 (0.87-1.13) H 09/15/18 03:43 Abnormal lab findings: Abnormal Labs 09/15/18 09/15/18 09/15/18 03:39 03:43 03:43 WBC RDW 16.5 H Plt Count 82 L Seg Neuts % (Manual) 83.0 H Lymphocytes % (Manual) 1.0 L Seg Neutrophils # Man Lymphocytes # (Manual) 0.1 L PT INR Sodium Potassium Chloride Carbon Dioxide 19 L BUN 37 H Creatinine 1.6 H Glucose 362 H POC Glucose Lactic Acid Calcium 11.1 H Phosphorus Magnesium TIBC Ferritin Alkaline Phosphatase 176 H Albumin 2.9 L Vitamin B12 Urine WBC (Auto) > 182.0 H 09/15/18 09/15/18 09/15/18 03:43 03:43 06:01 WBC RDW Plt Count Seg Neuts % (Manual) Lymphocytes % (Manual) Seg Neutrophils # Man Lymphocytes # (Manual) PT 20.9 H INR 1.85 H Sodium Potassium Chloride Carbon Dioxide BUN Creatinine Glucose POC Glucose Lactic Acid 2.60 H* 2.30 H* Calcium Phosphorus Magnesium TIBC Ferritin Alkaline Phosphatase Albumin Vitamin B12 Urine WBC (Auto) 09/16/18 09/16/18 09/16/18 00:40 04:17 04:17 WBC 11.6 H RDW 16.5 H Plt Count 65 L Seg Neuts % (Manual) 78.0 H Lymphocytes % (Manual) 1.0 L Seg Neutrophils # Man 9.0 H Lymphocytes # (Manual) 0.1 L PT INR Sodium Potassium 3.3 L Chloride 109.7 H Carbon Dioxide 16 L BUN 31 H Creatinine 1.3 H Glucose 370 H POC Glucose 368 H Lactic Acid Calcium 10.3 H Phosphorus Magnesium TIBC Ferritin Alkaline Phosphatase Albumin Vitamin B12 Urine WBC (Auto) 09/16/18 09/16/18 09/16/18 05:28 12:54 14:28 WBC RDW Plt Count Seg Neuts % (Manual) Lymphocytes % (Manual) Seg Neutrophils # Man Lymphocytes # (Manual) PT INR Sodium Potassium Chloride Carbon Dioxide BUN Creatinine Glucose POC Glucose 373 H 395 H 360 H Lactic Acid Calcium Phosphorus Magnesium TIBC Ferritin Alkaline Phosphatase Albumin Vitamin B12 Urine WBC (Auto) 09/16/18 09/16/18 09/16/18 17:28 22:02 22:47 WBC RDW Plt Count Seg Neuts % (Manual) Lymphocytes % (Manual) Seg Neutrophils # Man Lymphocytes # (Manual) PT INR Sodium Potassium Chloride Carbon Dioxide BUN Creatinine Glucose POC Glucose 298 H 361 H 342 H Lactic Acid Calcium Phosphorus Magnesium TIBC Ferritin Alkaline Phosphatase Albumin Vitamin B12 Urine WBC (Auto) 09/17/18 09/17/18 09/17/18 02:47 03:24 03:24 WBC RDW 17.1 H Plt Count 47 L Seg Neuts % (Manual) Lymphocytes % (Manual) Seg Neutrophils # Man Lymphocytes # (Manual) PT INR Sodium 146 H Potassium 3.1 L Chloride 115.1 H Carbon Dioxide 16 L BUN 26 H Creatinine Glucose 260 H POC Glucose 291 H Lactic Acid Calcium Phosphorus Magnesium TIBC Ferritin Alkaline Phosphatase Albumin Vitamin B12 Urine WBC (Auto) 09/17/18 09/17/18 09/17/18 05:40 07:43 11:11 WBC RDW Plt Count Seg Neuts % (Manual) Lymphocytes % (Manual) Seg Neutrophils # Man Lymphocytes # (Manual) PT INR Sodium Potassium Chloride Carbon Dioxide BUN Creatinine Glucose POC Glucose 216 H 205 H 222 H Lactic Acid Calcium Phosphorus Magnesium TIBC Ferritin Alkaline Phosphatase Albumin Vitamin B12 Urine WBC (Auto) 09/17/18 09/17/18 09/17/18 16:15 20:33 23:21 WBC RDW Plt Count Seg Neuts % (Manual) Lymphocytes % (Manual) Seg Neutrophils # Man Lymphocytes # (Manual) PT INR Sodium Potassium Chloride Carbon Dioxide BUN Creatinine Glucose POC Glucose 236 H 157 H 143 H Lactic Acid Calcium Phosphorus Magnesium TIBC Ferritin Alkaline Phosphatase Albumin Vitamin B12 Urine WBC (Auto) 09/18/18 09/18/18 09/18/18 04:12 04:12 04:44 WBC 14.8 H RDW 17.2 H Plt Count 43 L Seg Neuts % (Manual) Lymphocytes % (Manual) Seg Neutrophils # Man Lymphocytes # (Manual) PT INR Sodium 151 H Potassium Chloride 120.6 H Carbon Dioxide 18 L BUN 29 H Creatinine Glucose 149 H POC Glucose 157 H Lactic Acid Calcium Phosphorus 1.00 L Magnesium 1.60 L TIBC Ferritin Alkaline Phosphatase Albumin Vitamin B12 Urine WBC (Auto) 09/18/18 09/18/18 09/18/18 08:05 08:47 08:47 WBC RDW Plt Count Seg Neuts % (Manual) Lymphocytes % (Manual) Seg Neutrophils # Man Lymphocytes # (Manual) PT INR Sodium Potassium Chloride Carbon Dioxide BUN Creatinine Glucose POC Glucose 143 H Lactic Acid Calcium Phosphorus Magnesium TIBC 123 L Ferritin 651.0 H Alkaline Phosphatase Albumin Vitamin B12 Urine WBC (Auto) 09/18/18 09/18/18 09/18/18 08:47 12:17 16:44 WBC RDW Plt Count Seg Neuts % (Manual) Lymphocytes % (Manual) Seg Neutrophils # Man Lymphocytes # (Manual) PT INR Sodium Potassium Chloride Carbon Dioxide BUN Creatinine Glucose POC Glucose 180 H 243 H Lactic Acid Calcium Phosphorus Magnesium TIBC Ferritin Alkaline Phosphatase Albumin Vitamin B12 966.7 H Urine WBC (Auto) 09/18/18 09/18/18 09/19/18 18:20 23:02 03:13 WBC RDW Plt Count Seg Neuts % (Manual) Lymphocytes % (Manual) Seg Neutrophils # Man Lymphocytes # (Manual) PT INR Sodium Potassium Chloride Carbon Dioxide BUN Creatinine Glucose POC Glucose 197 H 229 H 200 H Lactic Acid Calcium Phosphorus Magnesium TIBC Ferritin Alkaline Phosphatase Albumin Vitamin B12 Urine WBC (Auto) 09/19/18 09/19/18 09/19/18 04:03 04:03 04:03 WBC RDW 17.3 H Plt Count 42 L Seg Neuts % (Manual) Lymphocytes % (Manual) Seg Neutrophils # Man Lymphocytes # (Manual) PT INR Sodium 150 H Potassium 3.2 L Chloride 120.5 H Carbon Dioxide 19 L BUN 27 H Creatinine Glucose 189 H POC Glucose Lactic Acid Calcium 10.4 H Phosphorus 0.90 L* Magnesium TIBC Ferritin Alkaline Phosphatase Albumin Vitamin B12 Urine WBC (Auto) 09/19/18 09/19/18 07:17 11:24 WBC RDW Plt Count Seg Neuts % (Manual) Lymphocytes % (Manual) Seg Neutrophils # Man Lymphocytes # (Manual) PT INR Sodium Potassium Chloride Carbon Dioxide BUN Creatinine Glucose POC Glucose 187 H 243 H Lactic Acid Calcium Phosphorus Magnesium TIBC Ferritin Alkaline Phosphatase Albumin Vitamin B12 Urine WBC (Auto)
[2018-09-19 13:57] VITALS: BP 141/84
--- NOTE | 2018-10-09 14:32 | Consultation ---
DICTATION STARTS ABRUPTLY. 67 year-old male with a past history hypertension, diabetes, DVT, dysphagia, DNR, came from group home for fever, decreased responsiveness. He was found to be tachycardic. Amiodarone was given. I have been asked to evaluate the patient due to low platelets. PAST MEDICAL HISTORY: Diabetes, hypertension, DVT, and dysphagia. PAST SURGICAL HISTORY: Not clear. SOCIAL HISTORY: Not clear. FAMILY HISTORY: Not clear. ALLERGIES: INCLUDE SULFA AND NEURONTIN. HOME MEDICATIONS: Include atorvastatin, hydralazine, Protonix, and Xarelto. REVIEW OF SYSTEMS: Not reliable. PHYSICAL EXAMINATION: VITAL SIGNS: Temperature 98.7, pulse 122, respirations 18, BP 117/66. HEENT: No pallor, no icterus. NECK: No neck lymph nodes. HEART: S1, S2. LUNGS: Clear to auscultation anteriorly. ABDOMEN: Soft. EXTREMITIES: Some lower leg swelling. NEUROLOGIC: Difficult to assess. LABORATORY DATA: White count 14, hemoglobin 10, MCV 88, platelets 43. Potassium 3.6, creatinine 1.1, calcium 10. Serum iron 57, ferritin 651. B12 966, folate 12. ASSESSMENT: 1. Thrombocytopenia. The patient had low platelet from 09/15/2018. Medications may have a role. 2. History of hypertension. 3. History of diabetes. 4. History of deep venous thrombosis. 5. History of dysphagia. 6. History of tachycardia. 7. The patient's performance status is not very good. He is DNR. We will follow the trend of the counts. ID team is following the patient. Cardiology is following the patient. JOB# [id number] NM/NTS
== END 2018-09-19 15:00 | DRG 871 ==
LOC: ED 03:12 → SUATTDRO 03:12 → CC1 05:41 → 2B-ACE 09-18 17:12
PROVIDERS: ADMIT Internal Medicine; ATTEND Internal Medicine
PROC: 05HY33Z Insertion of Infusion Device into Upper Vein, Percutaneous Approach (ICD-10-PCS; principal; 2018-09-19)
DX: A41.59 Other Gram-negative sepsis (principal); R65.21 Severe sepsis with septic shock; N17.0 Acute kidney failure with tubular necrosis; R53.2 Functional quadriplegia; J96.01 Acute respiratory failure with hypoxia; I47.2 Ventricular tachycardia; G93.40 Encephalopathy, unspecified; N30.00 Acute cystitis without hematuria; E87.0 Hyperosmolality and hypernatremia; E46 Unspecified protein-calorie malnutrition; Z66 Do not resuscitate; I95.2 Hypotension due to drugs; E83.39 Other disorders of phosphorus metabolism; L89.891 Pressure ulcer of other site, stage 1; E87.6 Hypokalemia; T50.995A Adverse effect of other drugs, medicaments and biological substances, initial encounter; E11.9 Type 2 diabetes mellitus without complications; I10 Essential (primary) hypertension; Z86.718 Personal history of other venous thrombosis and embolism; Z88.2 Allergy status to sulfonamides; Z88.8 Allergy status to other drugs, medicaments and biological substances; Z79.899 Other long term (current) drug therapy; Y92.098 Other place in other non-institutional residence as the place of occurrence of the external cause; Z68.28 Body mass index [BMI] 28.0-28.9, adult; Z79.84 Long term (current) use of oral hypoglycemic drugs
CPT/HCPCS: 36415; 71045; 76770; 80048; 80053; 81001; 82140; 82550; 82553; 82607; 82728; 82747; 82962; 83550; 83735; 84100; 84484; 85007; 85025; 85027; 85610; 85730; 87040; 87086; 87186; 93005; 93010; 93306; 94760; G0378; A9270-GY; C9113; J0153; J0282; J0692; J0696; J1815; J2270; J2405; J2543; J3475; J3480; J7030; J7040; J7060